=== PATIENT | male | born 1965 | race Caucasian/White ===

== ENCOUNTER 2017-09-14 14:15 | Emergency (ER) | payer OTHER ==
[~2017-09-14] VITALS: Ht 195.6 cm; Wt 152.0 kg
[2017-09-14] MEDS ORDERED: LISI40TA PO (15:00)
--- NOTE | 2017-09-14 15:11 | ED General ---
General Chief Complaint: Laceration Stated Complaint: LEFT INDEX FINGER LACERATION Nursing Triage Note: c/o laceration to left 2nd finger. Pt cut it with a knife while hanging Xmas lights. Nursing Sepsis Screen: No Definite Risk Source of Information: Patient Exam Limitations: No Limitations History of Present Illness Time Seen by Provider: 14:59 Allergies and Home Medications Allergies Coded Allergies: No Known Drug Allergies (Unverified , 09/14/17) Home Medications Lisinopril 40 Mg Tablet, 40 MG PO DAILY, (Reported) Past Spikxpx-Tkemed-Dpkaqw Hx Patient Social History Alcohol Use: Occasionally Uses Recreational Drug Use: No Smoking Status: Never a Smoker Recent Foreign Travel: No Contact w/Someone Who Travel: No Recent Infectious Disease Expo: No Surgeries History of Surgeries: Yes Surgeries: Tonsillectomy Respiratory History of Respiratory Disorde: No Cardiovascular History of Cardiac Disorders: Yes Cardiac Disorders: Hypertension Neurological History of Neurological Disord: No Genitourinary History of Genitourinary Disor: No Gastrointestinal History of Gastrointestinal Di: No Musculoskeletal History of Musculoskeletal Dis: No Endocrine History of Endocrine Disorders: No HEENT History of HEENT Disorders: No Cancer History of Cancer: No Psychosocial History of Psychiatric Problem: No Integumentary History of Skin or Integumenta: No Blood Transfusions History of Blood Disorders: No Physical Exam Vital Signs Vital Sign - Last 12Hours 09/14/17 14:53 Temp 98.5 Pulse 70 Resp 16 B/P (MAP) 135/87 O2 Delivery Room Air Capillary Refill : Less Than 3 Seconds Progress/Results/Core Measures Suspected Sepsis Recent Fever Within 48 Hours: No Infection Criteria Present: None New/Unexplained Altered Menta: No Sepsis Screen: No Definite Risk Sepsis Diagnosis: SIRS Temperature:98.5 Pulse: 70 Respiratory Rate: 16 Blood Pressure 135 /87 Mean: 103 Results/Orders My Orders Orders - JAE CARRERA Tdap (Boostrix) Im (09/14/17 15:13) Lidocaine 2% Injection 20 Ml (Xylocaine (09/14/17 15:13) Bupivacaine 0.5% Injection (Sensorcaine (09/14/17 15:15) Vital Signs/I&O Vital Sign - Last 12Hours 09/14/17 14:53 Temp 98.5 Pulse 70 Resp 16 B/P (MAP) 135/87 O2 Delivery Room Air Capillary Refill : Less Than 3 Seconds Blood Pressure Mean: 103 Departure Impression Impression: Primary Impression: Finger laceration Disposition: 01 HOME, SELF-CARE Condition: Improved Departure-Patient Inst. Decision time for Depature: 15:16 Referrals: FELICIANO LAMBERT DO (PCP/Family) Primary Care Physician Patient Instructions: Laceration Repair With Stitches (DC) Add. Discharge Instructions: All discharge instructions reviewed with patient and/or family. Voiced understanding. Medications as directed. Tylenol extra strength over-the- counter as directed for pain. Ibuprofen 800 mg by mouth every 8 hours as needed for pain. Elevate the hand on pillows, ice pack for 20 minute intervals as needed for pain and swelling. Tomorrow morning you may remove the bandage and shower with antibacterial soap. Apply triple antibiotic ointment twice daily for 3 days and cover with a Band-Aid. Finger splint as instructed. Return to the emergency department in 10 days for suture removal. Return immediately to the emergency department for worsened pain, redness, fever, drainage, or any other concerns. Follow-up with your family practitioner for recheck if needed. JAE CARRERA Sep 14, 2017 15:11
[2017-09-14] MEDS ORDERED: TETANUS,DIPTH,PERTUSS P/F (BOOSTRIX) 0.5 ML VIAL IM STA (15:13)
[2017-09-14] MEDS ORDERED: LIDOCAINE 2% 20 ML (XYLOCAINE) VIAL INJ STA (15:13)
[2017-09-14] MEDS ORDERED: BUPIVACAINE 0.5% 30 ML (SENSORCAINE) VIAL INJ ONE (15:15)
[2017-09-14 15:30] VITALS: BP 135/87
== END 2017-09-14 15:30 | disposition home or self-care (01) ==
LOC: EDUNIT# 14:15 → ER 14:17
DX: S61.211A Laceration without foreign body of left index finger without damage to nail, initial encounter (principal); I10 Essential (primary) hypertension; Z23 Encounter for immunization; Z90.89 Acquired absence of other organs; W26.0XXA Contact with knife, initial encounter
CPT/HCPCS: 90715

== ENCOUNTER 2020-08-27 05:30 | Outpatient (RCR) | payer OTHER ==
[~2020-08-27] VITALS: Ht 195 cm; Wt 152.0 kg
[~2020-08-27 05:30] MED LIST: LISI-552 PO; LISI1TAB46 PO; LISI40TA PO; MELO15TA39 PO
== END 2020-08-27 12:01 | disposition home or self-care (01) ==
LOC: PREOP 05:30
PROVIDERS: ATTEND Surgery
DX: Z01.812 Encounter for preprocedural laboratory examination (principal); Z20.828 Contact with and (suspected) exposure to other viral communicable diseases
CPT/HCPCS: 87635

== ENCOUNTER 2020-08-31 08:19 | Day surgery (SDC) | payer OTHER ==
[~2020-08-31] VITALS: Ht 195 cm; Wt 152.0 kg
[2020-08-31] MEDS ORDERED: LACTATED RINGERS 1,000 ML IV ONE (08:23)
[2020-08-31 08:35] VITALS: BP 112/92
[2020-08-31] MEDS ORDERED: LACTATED RINGERS 1,000 ML IV STA (08:40)
[2020-08-31] MEDS ORDERED: PROPOFOL INJECTION 50 ML IV ONE ×2 (09:42→10:18)
[2020-08-31] MEDS ORDERED: MIDAZOLAM 2 MG/2 ML (VERSED) VIAL ONE (09:42)
[2020-08-31] MEDS ORDERED: proPOfol 200 MG/20 ML (DIPRIVAN) VIAL IV ONE (10:08)
[2020-08-31 10:36] VITALS: BP 124/71
[2020-08-31 10:41] VITALS: BP 135/79
[2020-08-31 10:45] VITALS: BP 135/79
--- NOTE | 2020-08-31 10:46 | Progress Note-Post Operative ---
Post-Operative Progess Note Surgeon (s)/Mill Hand (s) Surgeon SUNDAR GORDON DO Mill Hand: na Pre-Operative Diagnosis screening colonoscopy Post-Operative Diagnosis colon polyps, diverticulosis, sigmoid mass Procedure & Operative Findings Date of Procedure 08/31/20 Procedure Performed/Findings colonoscopy c snare polypectomy x 5 and cold biopsies sigmoid mass, brandan inking 2 areas of colon Anesthesia Type per reserve operator Estimated Blood Loss Estimated blood loss (mL): min Specimens/Packing Specimens Removed colon polyps, sigmoid mass SUNDAR GORDON DO Aug 31, 2020 10:46
--- NOTE | 2020-08-31 10:47 | Discharge Inst-Simple/Standard ---
Discharge Inst-Standard Patient Instructions/Follow Up Plan of Care/Instructions/FU: 2 weeks Vanessa Activity as Tolerated: Yes Discharge Diet: Regular Diet SUNDAR GORDON DO Aug 31, 2020 10:47
[2020-08-31 11:15] VITALS: BP 134/91
[2020-08-31 11:30] VITALS: BP 134/91
--- NOTE | 2020-08-31 12:42 | Anesthesia-General Post-Op ---
MAC Patient Condition Mental Status/LOC: Same as Preop Cardiovascular: Satisfactory Nausea/Vomiting: Absent Respiratory: Satisfactory Pain: Controlled Complications: Absent Post Op Complications Complications None Follow Up Care/Instructions Patient Instructions None needed. Anesthesiology Discharge Order Discharge Order Patient is doing well, no complaints, stable vital signs, no apparent adverse anesthesia problems. No complications reported per nursing. WILVER BRYANT CRNA Aug 31, 2020 12:42
--- NOTE | 2020-08-31 16:25 | OPERATIVE REPORT ---
DATE OF SERVICE: 08/31/2020 PREOPERATIVE DIAGNOSIS: Screening colonoscopy. POSTOPERATIVE DIAGNOSES: Colon polyps, diverticulosis and sigmoid mass. PROCEDURES PERFORMED: Colonoscopy with snare polypectomy x5 and cold biopsies of sigmoid mass with Aleena inking of two areas of colon. SURGEON: Sundar Mendez DO. ANESTHESIA: Per CONCRETE BLOCK MAKER. ESTIMATED BLOOD LOSS: Minimal. COMPLICATIONS: None. INDICATIONS FOR PROCEDURE: The patient is a 54-year-old male needing screening colonoscopy. He understands risks and benefits of procedure and wished to proceed with procedure. Consent was signed in the chart. DESCRIPTION OF PROCEDURE: The patient was taken to the endoscopy suite and placed in a left lateral recumbent position. Timeout was performed. Digital rectal exam was performed. There were no palpable polyps, masses or ulcerations. Scope was inserted in the rectum, advanced all the way to cecum with minimal difficulty. Prep was adequate. Scope was then slowly retracted back. There were no polyps, masses or ulcerations within the cecum. In the ascending colon, there were three polyps, which snare polypectomies were performed and specimen obtained for pathology. Scope was then continued to be slowly retracted. No polyps, masses or ulcerations within the transverse colon. In the descending colon, another polyp was present, which snare polypectomy was performed and obtained. Scope was then continuously retracted back into the sigmoid colon where a larger pedunculated polyp was present, which snare polypectomy was performed. Just distal to this, area was injected with Aleena ink. The specimen was suctioned and slowly withdrawn until completely removed and then the scope was reinserted to the point of the snare polypectomy. Scope was then continued to be slowly retracted back. In the distal portion of the sigmoid, there was a larger sigmoid mass, which multiple cold biopsies were obtained. Just distal to this area, Aleena ink was tattooed just distal to the mass. Scope was then slowly retracted back in the rectum, where it was also retroflexed noting no other pathology. Scope was returned to its normal position, slowly withdrawn until completely removed. The patient tolerated the procedure well without any complications and taken to the recovery room in stable condition. RECOMMENDATIONS: The patient will follow up on pathology. We will discuss further management after biopsy is obtained. Job ID: [id number] DocumentID: [id number] Dictated Date: 08/31/2020 10:51:06 Laser Operator Date: 08/31/2020 16:24:49 Dictated By: SUNDAR MENDEZ DO
== END 2020-08-31 11:30 | disposition home or self-care (01) ==
LOC: ENDO 08:19
PROVIDERS: ATTEND Surgery
DX: Z12.11 Encounter for screening for malignant neoplasm of colon (principal); D12.2 Benign neoplasm of ascending colon; D12.4 Benign neoplasm of descending colon; D12.5 Benign neoplasm of sigmoid colon; K57.30 Diverticulosis of large intestine without perforation or abscess without bleeding; I10 Essential (primary) hypertension; M19.90 Unspecified osteoarthritis, unspecified site; E66.01 Morbid (severe) obesity due to excess calories; Z68.41 Body mass index [BMI] 40.0-44.9, adult; Z79.899 Other long term (current) drug therapy; Z80.1 Family history of malignant neoplasm of trachea, bronchus and lung
CPT/HCPCS: 88305

== ENCOUNTER → 2020-09-21 | Outpatient (CLI) | payer OTHER ==
[~2020-09-21] MED LIST changes: +CATHETER FLUSH 10 ML SYR IV PRN; +HOLD METFORMIN - RECEIVED CONTRAST 20 ML VIAL IV SCH; +IOHEXOL 350 MG/ML 100 ML (OMNIPAQUE 350) VIAL IV ONE; +NS 100 ML (IVPB) BAG IV ONE
[2020-09-21 09:42] LABS: HEMOGLOBIN 14.9 g/dL (13.3-17.7); MEAN PLATELET VOLUME 9.4 fL (9.0-12.2)
[2020-09-21 10:03] LABS: ALANINE AMINOTRANSFERASE 32 U/L (0-55); ALBUMIN 3.9 GM/DL (3.2-4.5); ALKALINE PHOSPHATASE 72 U/L (40-136); BILIRUBIN,TOTAL 0.7 MG/DL (0.1-1.0); BUN/CREATININE RATIO 16; CALCIUM 9.1 MG/DL (8.5-10.1); CARBON DIOXIDE 25 MMOL/L (21-32); CHLORIDE 104 MMOL/L (98-107); CREATININE SERUM 0.96 MG/DL (0.60-1.30); GFR ESTIMATED > 60; GLUCOSE 100 MG/DL (70-105); POTASSIUM 4.2 MMOL/L (3.6-5.0); SODIUM 138 MMOL/L (135-145)
--- NOTE | 2020-09-21 12:07 | Diagnostic Imaging Report ---
INDICATION: Colon carcinoma. TIME OF EXAM: 9:43 AM. COMPARISON: No prior studies are available for comparison. FINDINGS: The heart size is normal. The lungs are clear. No nodules or infiltrates are detected. There is no effusion or pneumothorax. IMPRESSION: No acute cardiopulmonary process is detected. Dictated by: Dictated on workstation # [id number]
--- NOTE | 2020-09-21 13:45 | Diagnostic Imaging Report ---
EXAMINATION: CT Abdomen and Pelvis with intravenous contrast. TECHNIQUE: Multiple contiguous axial images were obtained through the abdomen and pelvis after the uneventful administration of intravenous contrast. All CT scans use one or more of the following dose optimizing techniques: automated exposure control, MA and/or KvP adjustment based on a patient size and exam type, or iterative reconstruction. HISTORY: Colon cancer. COMPARISON: 09/23/2008. FINDINGS: Limited views of the lower thorax are unremarkable. There is a 10 mm right hemiliver lesion, not seen on prior exam. There are four additional low-attenuating liver lesions measuring 5 mm and smaller which are difficult to characterize. There is no biliary ductal dilation. Gallbladder is normal. Pancreas is normal. Spleen is normal. Adrenal glands are normal. The kidneys are normal. There is no hydronephrosis. Urinary bladder is normal. Visualized bowel is normal in caliber without obstruction or inflammation. No free fluid or air. No abdominal or pelvic lymphadenopathy. Aorta is normal in caliber without aneurysm. There are no suspicious osseous lesions. IMPRESSION: 1. Small indeterminate liver lesions may represent cysts versus metastatic disease. Liver protocol MRI is recommended for further evaluation. Dictated by: Dictated on workstation # [id number]
--- NOTE | 2020-09-22 09:28 | Diagnostic Imaging Report ---
INDICATION: Colon carcinoma, initial staging. TECHNIQUE: Serum blood glucose level at the time of injection was 99 mg/dL. The patient was administered 14.2 mCi of F-18 FDG intravenously in the right hand and whole body PET imaging was performed. Non-contrast CT was also performed for attenuation correction and anatomic correlation. COMPARISON: No prior PET studies are available for comparison. FINDINGS: There is symmetric activity throughout the brain. Physiologic activity in the soft tissues of the neck is identified. No mediastinal or hilar hypermetabolism is seen. No pulmonary parenchymal hypermetabolism is identified. There is physiologic activity throughout the GI and tracts of the abdomen and pelvis. There is an intense focus of hypermetabolism in the region of the rectosigmoid junction with an SUV max of 14.3. This may represent the known colonic malignancy. There is a tiny focus in the right pelvis with an SUV max of 4.9. No definite correlate is identified on the CT study but a tiny lymph node cannot be entirely excluded. Lower extremities are unremarkable. IMPRESSION: Hypermetabolic lesion at the rectosigmoid junction, perhaps owing to known primary colonic malignancy. There is a tiny hypermetabolic focus in the right lateral pelvis without definite CT correlate. A tiny lymph node cannot be entirely excluded. Remainder of the study is unremarkable. Dictated by: Dictated on workstation # [id number]
== END ==
LOC: RAD 09:26
PROVIDERS: ATTEND Surgery
DX: C18.7 Malignant neoplasm of sigmoid colon (principal); K76.9 Liver disease, unspecified
CPT/HCPCS: 71046; 74177; 78816; 80053; 82378; 85027; A9552; 36415

== ENCOUNTER 2020-09-28 05:35 | Outpatient (RCR) | payer OTHER ==
[~2020-09-28] VITALS: Ht 195.6 cm; Wt 152.3 kg
[~2020-09-28 05:35] MED LIST changes: -CATHETER FLUSH 10 ML SYR IV PRN; -HOLD METFORMIN - RECEIVED CONTRAST 20 ML VIAL IV SCH; -IOHEXOL 350 MG/ML 100 ML (OMNIPAQUE 350) VIAL IV ONE; -NS 100 ML (IVPB) BAG IV ONE
== END 2020-09-28 13:10 | disposition home or self-care (01) ==
LOC: PREOP 05:35
PROVIDERS: ATTEND Surgery
DX: Z01.812 Encounter for preprocedural laboratory examination (principal); C18.9 Malignant neoplasm of colon, unspecified; Z20.828 Contact with and (suspected) exposure to other viral communicable diseases
CPT/HCPCS: 87635

== ENCOUNTER 2020-09-30 07:48 | Inpatient (IN) | payer OTHER ==
[2020-09-30] VITALS (11 sets, daily range): BP systolic 128–148; BP diastolic 68–90
[~2020-09-30] VITALS: Ht 195.6 cm; Wt 152.3 kg
[2020-09-30] MEDS ORDERED: ceFAZolin 2 GM IV Premixed 50 ML IV ONE (08:15)
[2020-09-30] MEDS ORDERED: LACTATED RINGERS 1,000 ML IV PRN (08:15)
[2020-09-30] MEDS ORDERED: metroNIDAZOLE 500MG/100ML IVPB 100 ML IV ONE (08:15)
[2020-09-30] MEDS ORDERED: CATHETER FLUSH 10 ML SYR IV PRN (08:30)
[2020-09-30] MEDS ORDERED: fentaNYL INJECTION 250 MCG/5 ML AMP ONE (08:34)
[2020-09-30] MEDS ORDERED: MIDAZOLAM 2 MG/2 ML (VERSED) VIAL ONE (08:35)
[2020-09-30] MEDS ORDERED: LIDOCAINE/EPI 1%-1:100,000 (XYLOCAINE) 20ML ONE (08:49)
--- NOTE | 2020-09-30 09:27 | Progress Note-Pre Operative ---
Pre-Operative Progress Note H&P Reviewed The H&P was reviewed, patient examined and no changes noted. Date Seen by Provider: Sep 30, 2020 Time Seen by Provider: : Date H&P Reviewed: Sep 30, 2020 Time H&P Reviewed: : Pre-Operative Diagnosis: colon cancer SUNDAR GORDON DO Sep 30, 2020 09:27
[2020-09-30] MEDS ORDERED: ROCURONIUM 10 MG/ML 5 ML SYRINGE IV ONE (12:08)
[2020-09-30] MEDS ORDERED: NEOSTIGMINE 3 MG/3 ML VIAL ONE (12:08)
[2020-09-30] MEDS ORDERED: GLYCOPYRROLATE 0.2 MG/ML (ROBINUL) 2 ML VIAL ONE (12:08)
[2020-09-30] MEDS ORDERED: ONDANSETRON 4 MG/2 ML (SDV) Z0FRAN ONE (12:08)
[2020-09-30] MEDS ORDERED: SEVOFLURANE (ULTANE) 15 ML INHAL SOLN ONE (12:09)
[2020-09-30] MEDS ORDERED: BUPIVACAINE 0.5% 30 ML (SENSORCAINE) VIAL ONE (12:09)
[2020-09-30] MEDS ORDERED: proPOfol 200 MG/20 ML (DIPRIVAN) VIAL IV ONE (12:11)
--- NOTE | 2020-09-30 12:23 | Progress Note-Post Operative ---
Post-Operative Progess Note Surgeon (s)/Proposal Engineer (s) Surgeon SUNDAR GORDON DO Proposal Engineer: Dr. Harden Pre-Operative Diagnosis colon cancer Post-Operative Diagnosis same Procedure & Operative Findings Date of Procedure 09/30/20 Procedure Performed/Findings lap hand assisted low anterior resection with end to end anastamosis Anesthesia Type gen Estimated Blood Loss Estimated blood loss (mL): minimal Specimens/Packing Specimens Removed rectosigmoid colon SUNDAR GORDON DO Sep 30, 2020 12:23
[2020-09-30] MEDS ORDERED: HYDROcodone/APAP 5 MG/325 MG (LORTAB) TAB PO PRN (12:30)
[2020-09-30] MEDS ORDERED: ONDANSETRON 4 MG/2 ML (SDV) Z0FRAN IVP PRN ×2 (12:30→13:00)
[2020-09-30] MEDS ORDERED: morphine INJ 10 MG/ML 1ML (SYR OR VIAL) ONE (12:53)
[2020-09-30] MEDS ORDERED: MEPERIDINE (DEMEROL) INJ 50 MG/ML IVP ONE (13:00)
[2020-09-30] MEDS ORDERED: morphine INJ 10 MG/ML 1ML (SYR OR VIAL) IVP ONE (13:00)
[2020-09-30] MEDS ORDERED: fentaNYL INJECTION 100 MCG/2 ML AMP IVP ONE (13:00)
[2020-09-30] MEDS: LACTATED RINGERS 1,000 ML IV SCH ×3 (13:08→22:37)
--- NOTE | 2020-09-30 13:42 | NUR ---
REPORT RECEIVED FROM ALEJO SANTOSSENIOR QUALITY ASSURANCE ENGINEER, PATIENT ALERT AND ORIENTED, CALL LIGHT WITHIN REACH, TAMAYO PATENT WITH CLEAR YELLOW URINE, ABD INCISION HAD BLOOD ON DRESSING, WILL CONTINUE TOP MONITOR TAMAYO PATENT WITH CLEAR YELLOW URINE, SCD'S APPLIED, ICE PACK TO ABD, NO C/O PAIN AT THIS TIME
[2020-09-30] MEDS ORDERED: hydrALAZINE (APESOLINE) 20 MG/ML VIAL IV PRN (15:15)
--- NOTE | 2020-09-30 17:00 | NUR ---
WALKED IN [place], JACI WELL, SMALL AMOUNT BLEEDING FROM ABD INCISION, DRESSING REINFORCED.
[2020-09-30] MEDS: metroNIDAZOLE 500MG/100ML IVPB 100 ML IV SCH (17:06)
[2020-09-30] MEDS: ceFAZolin 2 GM IV Premixed 50 ML IV SCH (18:34)
[2020-09-30] MEDS: morphine INJ 4 MG/ML 1 ML (VIAL/SYRINGE) IVP PRN ×2 (18:38→22:37)
[2020-10-01] VITALS (8 sets, daily range): BP systolic 125–147; BP diastolic 67–83
[2020-10-01] MEDS: ceFAZolin 2 GM IV Premixed 50 ML IV SCH (01:45)
[2020-10-01] MEDS: metroNIDAZOLE 500MG/100ML IVPB 100 ML IV SCH (02:23)
[2020-10-01 05:51] LABS: HEMOGLOBIN 13.7 g/dL (13.3-17.7); MEAN PLATELET VOLUME 9.8 fL (9.0-12.2); WHITE BLOOD COUNT 11.1 10^3/uL (4.3-11.0)
[2020-10-01 06:02] LABS: CHLORIDE 103 MMOL/L (98-107); POTASSIUM 4.2 MMOL/L (3.6-5.0); SODIUM 135 MMOL/L (135-145)
[2020-10-01 06:03] LABS: CALCIUM 8.3 MG/DL (8.5-10.1)
[2020-10-01] MEDS: POTASSIUM CL 10MEQ/50ML IVPB 50 ML IV SCH ×2 (06:03→23:04)
[2020-10-01] MEDS: KCL 20 MEQ TAB (K-DUR) PO SCH (06:03)
[2020-10-01 06:04] LABS: GLUCOSE 119 MG/DL (70-105)
[2020-10-01 06:05] LABS: CARBON DIOXIDE 24 MMOL/L (21-32)
[2020-10-01 06:07] LABS: CREATININE SERUM 0.99 MG/DL (0.60-1.30); GFR ESTIMATED > 60; PHOSPHORUS 3.8 MG/DL (2.3-4.7)
[2020-10-01 06:08] LABS: BUN/CREATININE RATIO 14
[2020-10-01 06:10] LABS: MAGNESIUM 2.1 MG/DL (1.6-2.4)
[2020-10-01] MEDS: MAGNESIUM 1 GM/100 ML IVPB 100 ML IV SCH (06:21)
--- NOTE | 2020-10-01 06:45 | Anesthesia-General Post-Op ---
General Patient Condition Mental Status/LOC: Same as Preop Cardiovascular: Satisfactory Nausea/Vomiting: Absent Respiratory: Satisfactory Pain: Controlled Complications: Absent Post Op Complications Complications None Follow Up Care/Instructions Patient Instructions None needed. Anesthesia/Patient Condition Patient Condition Patient is doing well, no complaints, stable vital signs, no apparent adverse anesthesia problems. No complications reported per nursing. D/C home per [facility] Criteria: MARIELLE Newell CRNA Oct 01, 2020 06:45
--- NOTE | 2020-10-01 07:13 | Progress Note - Surgery ---
SELVIN PHIPPS MED STUDENT 10/01/20 0713: Subjective Date Seen by a Provider: Oct 01, 2020 Time Seen by a Provider: 06:45 Subjective/Events-last exam Pt seen and examined. Pt is laying in bed, NAD. POD#1 s/p rectosigmoid bowel resection for colon cancer. He states that pain is well controlled; minimal when laying down but worsens with movement. Denies N/V, no flatus since surgery, last BM on Sunday. He has complaints of the Arce tugging and causing him discomfort. Ambulated around the [place] x1 yesterday without issue. Tolerating ice chips well, states that he had 6-8cups worth of ice chips since yesterday. Pt had no other questions or concerns. Review of Systems General: No Chills HEENT: No Head Aches Pulmonary: No Dyspnea, No Cough Cardiovascular: No: Chest Pain, Palpitations, Lt Headedness Gastrointestinal: Abdominal Pain (Diffuse/dull abd pain, worse with palpation/movement); No: Nausea, Vomiting Genitourinary: Dysuria (discomfort/feeling of fullness r/t arce catheter) Objective Exam Vital Signs Date Time Temp Pulse Resp B/P (MAP) Pulse Ox O2 Delivery O2 Flow Rate FiO2 10/01/20 04:00 37.2 80 18 125/72 (89) 96 Room Air 10/01/20 00:00 37.1 89 18 134/67 (89) 96 Room Air 09/30/20 21:00 Room Air 09/30/20 19:49 37.2 87 20 131/68 (89) 94 Room Air 09/30/20 16:13 36.9 89 18 134/72 (92) 96 Room Air 09/30/20 15:32 97 Room Air 09/30/20 13:50 36.2 68 20 148/85 (106) 97 Room Air 09/30/20 13:40 Room Air 09/30/20 13:40 36.8 18 136/81 (99) 97 Room Air 09/30/20 13:35 Room Air 09/30/20 13:30 18 136/81 (99) 96 Room Air 09/30/20 13:25 OxyMask 3 09/30/20 13:22 OxyMask 3 09/30/20 13:20 18 135/84 (101) 100 OxyMask 3 09/30/20 13:10 OxyMask 3 09/30/20 13:10 18 128/83 (98) 100 OxyMask 3 09/30/20 13:00 18 138/81 (100) 100 OxyMask 6 09/30/20 12:55 OxyMask 6 09/30/20 12:50 18 136/90 (105) 100 OxyMask 6 09/30/20 12:43 37.1 11 131/72 (91) 99 OxyMask 6 09/30/20 12:43 OxyMask 6 09/30/20 08:15 35.6 94 20 146/87 (106) 96 Room Air 09/30/20 08:15 96 Room Air I & O 10/01/20 07:00 Intake Total 450 ml Output Total 1870 ml Balance -1420 ml Capillary Refill : NONENONE General Appearance: No Apparent Distress, WD/WN, Obese HEENT: PERRL/EOMI Neck: Full Range of Motion, Normal Inspection Respiratory: Chest Non Tender, Lungs Clear, Normal Breath Sounds, No Accessory Muscle Use, No Respiratory Distress Cardiovascular: Regular Rate, Rhythm, No Edema, No Gallop, No JVD, No Murmur Gastrointestinal: soft, abnormal bowel sounds (hypoactive x4); No guarding, No rebound; tenderness Extremity: Normal Inspection, Normal Range of Motion Neurologic/Psychiatric: Alert, Oriented x3, No Motor/Sensory Deficits, Normal Mood/Affect Skin: Normal Color, Warm/Dry, Other Other comments Incision sites x4 to abd: RUQ, LUQ, RLQ, mid-abd. Mid-abd incision with Telfa d ressing soaked through with sanguinous drainage since yesterday, with some drainage on the overlying dressing. Lap sites with mild amounts of drainage. Results Lab Laboratory Tests 10/01/20 05:40: White Blood Count 11.1H, Red Blood Count 4.52, Hemoglobin 13.7, Hematocrit 41, Mean Corpuscular Volume 91, Mean Corpuscular Hemoglobin 30, Mean Corpuscular Hemoglobin Concent 33, Red Cell Distribution Width 13.4, Platelet Count 234, Mean Platelet Volume 9.8, Sodium Level 135, Potassium Level 4.2, Chloride Level 103, Carbon Dioxide Level 24, Anion Gap 8, Blood Urea Nitrogen 14, Creatinine 0.99, Estimat Glomerular Filtration Rate > 60, BUN/Creatinine Ratio 14, Glucose Level 119H, Calcium Level 8.3L, Phosphorus Level 3.8, Magnesium Level 2.1 Assessment/Plan Assessment/Plan Assessment/Plan s/p rectosigmoid bowel resection POD#1 Leukocytosis - WBC 11.1 Obese Pt is tolerating ice chips well, advance to clear liquid diet. Pain well controlled with no complaints of N/V. No flatus since surgery. Continue to encourage ambulation and IS use. Continue to monitor labs/incision sites. Clinical Quality Measures DVT/VTE Risk/Contraindication: Risk Factor Score Per Nursin RFS Level Per Nursing on Admit: 3=High SUNDAR GORDON DO 10/01/201932: Subjective Subjective/Events-last exam Patient states he is doing well. He is ambulating. His pain is controlled. No flatus or bowel movement. He just started clears this morning and feeling okay with them no nausea or vomiting. Denies any fever sweats chills shortness of breath or chest pain. Objective Exam General Appearance: No Apparent Distress, WD/WN, Obese HEENT: PERRL/EOMI, Normal ENT Inspection Neck: Full Range of Motion, Normal Inspection Respiratory: Chest Non Tender, No Accessory Muscle Use, No Respiratory Distress Cardiovascular: Regular Rate, Rhythm, No Edema Gastrointestinal: soft, tenderness (Incisional, no signs of infection) Extremity: Normal Inspection, Normal Range of Motion Neurologic/Psychiatric: Alert, Oriented x3, No Motor/Sensory Deficits, Normal Mood/Affect Skin: Normal Color, Warm/Dry Lymphatic: No Adenopathy Assessment/Plan Assessment/Plan Assessment/Plan Status post laparoscopic hand-assisted low anterior resection Obesity Hypertension Pain control IV hydration Ambulate Incentive spirometer Start Lovenox tomorrow [place] Arce Await bowel function Supervisory-Addendum Brief Verification & Attestation Participated in pt care: history, MDM, physical Personally performed: exam, history, MDM, supervision of care Care discussed with: Medical Student Procedures: n/a Results interpretation: Verified all documentation Verification and Attestation of Medical Student E/M Service A medical student performed and documented this service in my presence. I reviewed and verified all information documented by the medical student and made modifications to such information, when appropriate. I personally performed the physical exam and medical decision making. Sundar Gordon, Oct 01, 2020,19:33 SELVIN PHIPPS MED STUDENT Oct 01, 2020 07:13 SUNDAR GORDON DO Oct 01, 2020 19:33
[2020-10-01] MEDS: LACTATED RINGERS 1,000 ML IV SCH ×3 (08:40→23:04)
--- NOTE | 2020-10-01 09:18 | Physical Therapy Progress Note ---
Therapy Progress Note Patient is up with and without nursing staff ambulating in hallway and in room without difficulty. No PT indicated. 1 visit (812) DANIELLE CLARKE PT Oct 01, 2020 09:18
--- NOTE | 2020-10-01 15:00 | NUR ---
pt hoping to be discharged home today. His will be hi s primary caregiver. 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 He [facility] app[facility]. No continued care needs at this time.
--- NOTE | 2020-10-01 16:00 | NUR ---
PT. STATES HE IS VOIDING WELL.
--- NOTE | 2020-10-01 16:14 | Consultation - Hospitalist ---
HPI History of Present Illness: HPI/Chief Complaint Franki Norris is a 54-year-old male who was admitted for rectosigmoid resection due to colon cancer. He underwent the surgery yesterday. He reports that he is feeling well today. He is not passing gas or bowel movements. He did have clear liquids this morning and tolerated it well. He has been up and moving around. He denies any fevers or chills. He denies any chest pain. He denies any shortness of breath or cough. He denies any abdominal pain. He has a history of hypertension. Source: patient Exam Limitations: no limitations Date Seen 10/01/20 Attending Physician Marcus Mendez DO PCP Sancho Dahl DO Referring Physician Date of Admission Sep 30, 2020 at 07:48 Home Medications & Allergies Home Medications Reviewed patient Home Medication Reconciliation performed by pharmacy medication reconciliations emergency veterinary technician and/or nursing. Patients Allergies have been reviewed. Allergies Allergies Coded Allergies No Known Drug Allergies (Bczkbgodsq82/4/20) Past Yxmxsdw-Edhjek-Cwqulv Hx Past Med/Social Hx: Reviewed Nursing Past Med/Soc Hx Patient Social History Alcohol Use: Occasionally Uses Recreational Drug Use: No Smoking Status: Never a Smoker 2nd Hand Smoke Exposure: No Physical Abuse Screen: No Sexual Abuse: No Recent Foreign Travel: No Contact w/other who traveled: No Recent Hopitalizations: No Recent Infectious Disease Expo: No Immunizations Up To Date Tetanus Booster (TDap): Unknown Date of Influenza Vaccine: Aug 31, 2020 Seasonal Allergies Seasonal Allergies: No Past Medical History Surgeries: Tonsillectomy Cardiac: Hypertension Sexually Transmitted Disease: No HIV/AIDS: No Loss of Vision: Denies Hearing Impairment: Denies History of Blood Disorders: No Adverse Reaction to Blood Van: No (N/A) Family History Cataracts 19 MOTHER Completed stroke 19 FATHER Deafness or hearing loss 19 MOTHER Hypertension 19 FATHER 19 MOTHER No Pertinent Family Hx Review of Systems Constitutional: no symptoms reported EENTM: no symptoms reported Respiratory: no symptoms reported Cardiovascular: no symptoms reported Gastrointestinal: no symptoms reported Genitourinary: no symptoms reported Musculoskeletal: no symptoms reported Skin: no symptoms reported Psychiatric/Neurological: No Symptoms Reported Physical Exam Physical Exam Vital Signs Vital Signs - First Documented 09/30/20 08:15 Temp 35.6 Pulse 94 Resp 20 B/P (MAP) 146/87 (106) Pulse Ox 96 O2 Delivery Room Air Capillary Refill : NONENONE Height, Weight, BMI Height: 6'5.00" Weight: 335lbs. oz. 151.423197va; 39.80 BMI Method:Stated General Appearance: No Apparent Distress, WD/WN, Obese HEENT: PERRL/EOMI, Pharynx Normal Neck: Normal Inspection, Supple Respiratory: Lungs Clear, Normal Breath Sounds, No Respiratory Distress Cardiovascular: Regular Rate, Rhythm, No Edema, No Murmur Gastrointestinal: Normal Bowel Sounds, Non Tender, Soft Extremity: Normal Inspection, Non Tender, No Pedal Edema Neurologic/Psychiatric: Alert, Oriented x3, No Motor/Sensory Deficits, Normal Mood/Affect Skin: Normal Color, Warm/Dry, Other Results Results/Procedures Labs Laboratory Tests 10/01/20 05:40 Patient resulted labs reviewed. Imaging: Reviewed Imaging Report Assessment/Plan Assessment and Plan Assess & Plan/Chief Complaint Colon cancer s/p rectosigmoidectomy s/p resection 09/30 Pain regimen Incentive spirometry IV fluids Clear liquid diet Ambulation HTN Continue Lisinopril Hydralazine as needed Obesity Clinically significant, no acute management needs DVT Prophylaxis: begin Lovenox when ok with surgery The hospitalist service will sign off at this time. Do not hesitate to call with any questions or concerns. Diagnosis/Problems Diagnosis/Problems (1) Colon cancer Status: Acute (2) S/P partial colectomy Status: Acute (3) HTN (hypertension) Status: Chronic (4) Obesity Status: Chronic Clinical Quality Measures DVT/VTE Risk/Contraindication: Risk Factor Score Per Nursin RFS Level Per Nursing on Admit: 3=High TYREE TEAGUE MD Oct 01, 2020 16:14
--- NOTE | 2020-10-02 02:26 | OPERATIVE REPORT ---
DATE OF SERVICE: 09/30/2020 PREOPERATIVE DIAGNOSIS: Colon cancer. POSTOPERATIVE DIAGNOSIS: Colon cancer. PROCEDURE: Laparoscopic hand-assisted low anterior resection with end-to-end anastomosis. SURGEON: Sundar Mendez DO CERTIFIED FLIGHT INSTRUCTOR: Dr. Harden, assisted in retraction, dissection and closure. ANESTHESIA: General. ESTIMATED BLOOD LOSS: Minimal. SPECIMENS: Rectosigmoid colon. INDICATIONS: The patient is a 54-year-old male found to have a mass in the sigmoid colon. He was discussed risks and benefits of procedure and wished to proceed with procedure. Consent was signed in the chart. DESCRIPTION OF PROCEDURE: The patient was taken to the operating suite, was prepped and draped in lithotomy position. Timeout was performed. Midline incision was made for hand assist Gelport placement. The Gelport was then inserted and the abdomen was then insufflated. Under direct visualization of the laparoscope, a 12 mm trocar was placed in the left lower quadrant and in the right lower quadrant. The patient's abdomen was inspected noting the mass at the rectosigmoid junction. The right colon was then mobilized along the white line of Toldt using cautery. The rectum was then continued to be dissected on the lateral aspects mobilizing the rectum, the massively palpated and further dissection was taken distally until the colon was able to be dissected around distal to the mass. Once distal and the colon was dissected around, an Endo-JAY JAY stapler was then fired across transecting the rectum. A 5 mm trocar had to be placed in left upper quadrant to assist with further dissection of the left gutter for mobilization of the length. Once this occurred, the LigaSure was then used to start dissecting the mesentery of the rectum proximally. This was then brought out through the hand port and further dissection of the mesentery with a LigaSure was used. The proximal margin of the colon was then dissected around and an Endo-JAY JAY reload was then fired across and the LigaSure was then used to divide the rest of the mesentery obtaining a specimen. A stitch was placed on the distal portion of the specimen. A pursestring suture was then fired across the distal portion of the sigmoid colon and a 29 EEA stapler anvil was inserted after the staple line was cut out. Using the pursestring, the anvil was tied into place. The colon fat was dissected off of the distal portion for the anastomosis. At this time, Dr. Harden went down below and dilated the rectum and the end-to-end anastomosis was created. He had two good anastomotic rings. The pelvis was filled with saline and air leak test was performed demonstrating no leak. The irrigation was suctioned. The abdomen was reinspected. No other pathology noted. The midline incision for the hand port was then closed using 1-0 looped PDS in a running fashion. The abdomen was then reinsufflated. The abdomen was inspected. No other abnormalities noted. The abdomen was then desufflated. The trocars were removed. The skin was then closed using kristofer. The area was then washed and dried and sterile bandages were applied. The patient tolerated procedure well without any complications. He was taken to recovery room in stable condition. Job ID: [id number] DocumentID: [id number] Dictated Date: 10/01/2020 21:38:57 Room Clerk Date: 10/02/2020 02:25:30 Dictated By: SUNDAR MENDEZ DO
[2020-10-02 04:09] VITALS: BP 132/69
[2020-10-02] MEDS: MAGNESIUM 1 GM/100 ML IVPB 100 ML IV SCH (05:58)
[2020-10-02 06:00] LABS: HEMOGLOBIN 13.5 g/dL (13.3-17.7); WHITE BLOOD COUNT 8.3 10^3/uL (4.3-11.0)
[2020-10-02 06:19] LABS: CHLORIDE 104 MMOL/L (98-107); POTASSIUM 4.2 MMOL/L (3.6-5.0); SODIUM 137 MMOL/L (135-145)
[2020-10-02 06:20] LABS: CALCIUM 8.2 MG/DL (8.5-10.1); GLUCOSE 95 MG/DL (70-105)
[2020-10-02 06:22] LABS: CARBON DIOXIDE 23 MMOL/L (21-32)
[2020-10-02 06:24] LABS: CREATININE SERUM 0.88 MG/DL (0.60-1.30); GFR ESTIMATED > 60; PHOSPHORUS 2.8 MG/DL (2.3-4.7)
[2020-10-02 06:25] LABS: BUN/CREATININE RATIO 17
[2020-10-02] MEDS: KCL 20 MEQ TAB (K-DUR) PO SCH (06:27)
[2020-10-02 08:05] VITALS: BP 133/74
[2020-10-02] MEDS: lisINopril 40 MG (PRINIVIL) TABLET PO SCH (09:35)
[2020-10-02] MEDS: ENOXAPARIN 40 MG/0.4 ML (LOVENOX) SYR SC SCH (09:35)
--- NOTE | 2020-10-02 11:50 | Progress Note ---
Subjective Date Seen by a Provider: Oct 02, 2020 Time Seen by a Provider: 10:40 Subjective/Events-last exam Patient seen with Dr. Cohen. Patient reports doing well. Tolerating diet and ambulating. Reports having flatus since last night. Denies any abdominal pain, nausea, vomiting, fever, or chills. Patient reports that he feels like he can go home. Objective Exam Vital Signs Date Time Temp Pulse Resp B/P (MAP) Pulse Ox O2 Delivery O2 Flow Rate FiO2 10/02/20 04:09 37.0 85 20 132/69 (90) 95 Room Air 10/01/20 23:25 36.7 89 18 130/71 (90) 94 Room Air 10/01/20 20:36 37.6 80 18 147/83 (104) 95 Room Air 10/01/20 20:25 Room Air 10/01/20 17:12 37.5 70 20 144/82 (102) 97 Room Air 10/01/20 17:00 37.5 70 20 144/82 (102) 97 Room Air 10/01/20 12:00 37.1 97 20 130/82 (98) 93 Room Air I & O 10/02/20 07:00 Intake Total 1935 ml Output Total 850 ml Balance 1085 ml Capillary Refill : NONENONE General Appearance: No Apparent Distress, WD/WN Neck: Full Range of Motion, Normal Inspection Respiratory: Normal Breath Sounds, No Accessory Muscle Use, No Respiratory Distress Cardiovascular: Regular Rate, Rhythm, No Edema Gastrointestinal: normal bowel sounds, non tender, soft, other (abdominal incisions C/D/I) Extremity: Normal Inspection, Normal Range of Motion Neurologic/Psychiatric: Alert, Oriented x3 Skin: Normal Color, Warm/Dry Results Lab Laboratory Tests 10/02/20 05:41: White Blood Count 8.3, Red Blood Count 4.47, Hemoglobin 13.5, Hematocrit 42, Mean Corpuscular Volume 93, Mean Corpuscular Hemoglobin 30, Mean Corpuscular Hemoglobin Concent 32, Red Cell Distribution Width 13.4, Platelet Count 210, Mean Platelet Volume 10.0, Sodium Level 137, Potassium Level 4.2, Chloride Level 104, Carbon Dioxide Level 23, Anion Gap 10, Blood Urea Nitrogen 15, Creatinine 0.88, Estimat Glomerular Filtration Rate > 60, BUN/Creatinine Ratio 17, Glucose Level 95, Calcium Level 8.2L, Phosphorus Level 2.8, Magnesium Level 2.0 Microbiology 09/30/20 MRSA Screen - Final, Complete MRSA not isolated Assessment/Plan Assessment/Plan Assess & Plan/Chief Complaint A 54 year old male with colon cancer who is Status post laparoscopic hand- assisted low anterior resection, Obesity, Hypertension VSS WBC 8.3 Will advance to DYS3 diet Pain control IV hydration Ambulate Incentive spirometer Home Soon Clinical Quality Measures DVT/VTE Risk/Contraindication: Risk Factor Score Per Nursin RFS Level Per Nursing on Admit: 3=High COLT PAGAN VENDING ROUTE SERVICER Oct 02, 2020 11:50
--- NOTE | 2020-10-02 11:53 | Discharge Inst-Surgical ---
D/C Lap Instructions-KIDO Reconcile Patient Problems Problems Reviewed?: Yes New, Converted, or Re-Newed RX: RX on Chart Follow Up Appt in [address] Mendez Activity as tolerated No driving for 24 hours No driving while on pain medications No heavy lifting or exertion Incentive Spirometry use every 2 hours while awake Regular Diet Symptoms to Report: Fever over 101 degree F, Nausea/Vomiting Infection Signs and Symptoms to report: Increased redness, Foul odor of wound, Increased drainage Bathing instructions: May shower Operative Area Clean/Dry; Keep incision clean/dry If any problems/questions: Contact your physician or go to Emergency Room COLT PAGAN APRN Oct 02, 2020 11:53
[2020-10-02 16:19] VITALS: BP 159/73
[2020-10-03] VITALS: BP 114/57
[2020-10-03] MEDS: POTASSIUM CL 10MEQ/50ML IVPB 50 ML IV SCH (06:30)
[2020-10-03] MEDS: KCL 20 MEQ TAB (K-DUR) PO SCH (06:30)
[2020-10-03 07:30] VITALS: BP 135/79
[2020-10-03 07:43] LABS: HEMOGLOBIN 13.5 g/dL (13.3-17.7); WHITE BLOOD COUNT 7.6 10^3/uL (4.3-11.0)
[2020-10-03 07:55] LABS: CHLORIDE 105 MMOL/L (98-107); POTASSIUM 4.2 MMOL/L (3.6-5.0); SODIUM 139 MMOL/L (135-145)
[2020-10-03 07:56] LABS: CALCIUM 8.4 MG/DL (8.5-10.1); GLUCOSE 84 MG/DL (70-105)
[2020-10-03 07:58] LABS: CARBON DIOXIDE 22 MMOL/L (21-32)
[2020-10-03 08:00] LABS: CREATININE SERUM 0.82 MG/DL (0.60-1.30); GFR ESTIMATED > 60; PHOSPHORUS 3.3 MG/DL (2.3-4.7)
--- NOTE | 2020-10-03 08:00 | NUR ---
DENIES PAIN. STATES "A LITTLE INCISIONAL SORENESS". TOLERATING SOFT DIET WELL. FEELS READY FOR DISCHARGE.
[2020-10-03 08:01] LABS: BUN/CREATININE RATIO 17
[2020-10-03 08:03] LABS: MAGNESIUM 2.1 MG/DL (1.6-2.4)
[2020-10-03] MEDS: lisINopril 40 MG (PRINIVIL) TABLET PO SCH (09:53)
[2020-10-03] MEDS: ENOXAPARIN 40 MG/0.4 ML (LOVENOX) SYR SC SCH (09:55)
--- NOTE | 2020-10-03 10:18 | Progress Note ---
Subjective Date Seen by a Provider: Oct 03, 2020 Time Seen by a Provider: 09:30 Subjective/Events-last exam Patient seen with Dr. Cohen. Patient reports doing well with minimal discomfort/pain. He reports tolerating diet and ambulating. Denies any nausea or vomiting. He reports that he is ready to go home. Objective Exam Vital Signs Date Time Temp Pulse Resp B/P (MAP) Pulse Ox O2 Delivery O2 Flow Rate FiO2 10/03/20 07:30 36.8 79 20 135/79 (97) 98 Room Air 10/03/20 00:00 36.8 66 18 114/57 (76) 96 Room Air 10/02/20 19:41 Room Air 10/02/20 16:19 89 20 159/73 (101) 95 Room Air I & O0 10/03/20 07:00 Intake Total 1450 ml Balance 1450 ml Capillary Refill : Less Than 3 SecondsNONE General Appearance: No Apparent Distress, WD/WN Neck: Full Range of Motion, Normal Inspection Respiratory: Normal Breath Sounds, No Accessory Muscle Use, No Respiratory Distress Cardiovascular: Regular Rate, Rhythm, No Edema Gastrointestinal: normal bowel sounds, non tender, soft, other (Abdominal incisions C/D/I) Extremity: Normal Inspection, Normal Range of Motion Neurologic/Psychiatric: Alert, Oriented x3 Skin: Normal Color, Warm/Dry Results Lab Laboratory Tests 10/03/20 07:21: White Blood Count 7.6, Red Blood Count 4.44, Hemoglobin 13.5, Hematocrit 42, Mean Corpuscular Volume 94, Mean Corpuscular Hemoglobin 30, Mean Corpuscular Hemoglobin Concent 33, Red Cell Distribution Width 13.4, Platelet Count 204, Mean Platelet Volume 10.0, Sodium Level 139, Potassium Level 4.2, Chloride Level 105, Carbon Dioxide Level 22, Anion Gap 12, Blood Urea Nitrogen 14, Creatinine 0.82, Estimat Glomerular Filtration Rate > 60, BUN/Creatinine Ratio 17, Glucose Level 84, Calcium Level 8.4L, Phosphorus Level 3.3, Magnesium Level 2.1 Microbiology 09/30/20 MRSA Screen - Final, Complete MRSA not isolated Assessment/Plan Assessment/Plan Assess & Plan/Chief Complaint A 54 year old male with colon cancer who is Status post laparoscopic hand- assisted low anterior resection, Obesity, Hypertension VSS WBC 7.3 Tolerating DYS3 diet Pain control IV hydration Ambulate Incentive spirometer Ok to DC home. Follow up with Dr. Mendez in 2 weeks Clinical Quality Measures DVT/VTE Risk/Contraindication: Risk Factor Score Per Nursin RFS Level Per Nursing on Admit: 3=High COLT PAGAN RELIEF CAPTAIN Oct 03, 2020 10:18
--- NOTE | 2020-10-03 10:45 | NUR ---
DR. GARY HERE TO SEE PATIENT.
[2020-10-03 13:04] VITALS: BP 135/79
== END 2020-10-03 12:00 | disposition home or self-care (01) | DRG 331 ==
LOC: 4TH 07:48 → SURG 07:49 → 4TH 13:30
PROVIDERS: ADMIT Surgery; ATTEND Surgery
PROC: 0DBP0ZZ Excision of Rectum, Open Approach (ICD-10-PCS; principal; 2020-09-30 09:55)
PROC: 0DBN0ZZ Excision of Sigmoid Colon, Open Approach (ICD-10-PCS; 2020-09-30 09:55)
DX: C19 Malignant neoplasm of rectosigmoid junction (principal); E66.9 Obesity, unspecified; Z68.39 Body mass index [BMI] 39.0-39.9, adult; I10 Essential (primary) hypertension
CPT/HCPCS: 36415; 80048; 83735; 84100; 85027; 86850; 86900; 86901; 87081

== ENCOUNTER 2020-10-21 09:28 | Outpatient (RCR) | payer OTHER ==
[~2020-10-21] VITALS: Ht 195.6 cm; Wt 149.2 kg
[2020-10-25] MEDS ORDERED: D5W 500 ML IV (CANCER CTR) 500 ML IV SCH (14:30)
[2020-10-25] MEDS ORDERED: OXALIPLATIN 170 MG in D5W 250 ML IVPB (CANCER CTR) 250 ML IV SCH (14:45)
[2020-10-25] MEDS ORDERED: LEUCOVORIN CALCIUM 500 MG, LEUCOVORIN CALCIUM 200 MG, LEUCOVORIN CALCIUM 100 MG in D5W ... IV SCH (14:45)
== END 2020-10-29 14:30 | disposition home or self-care (01) ==
LOC: ONC 09:28
PROVIDERS: ATTEND Internal Medicine Hematology & Oncology
DX: C18.7 Malignant neoplasm of sigmoid colon (principal)
CPT/HCPCS: 99213; 99214

== ENCOUNTER 2020-10-26 05:36 | Outpatient (RCR) | payer OTHER ==
[~2020-10-26] VITALS: Ht 195.6 cm; Wt 150.9 kg
== END 2020-10-26 09:50 | disposition home or self-care (01) ==
LOC: PREOP 05:36
PROVIDERS: ATTEND Surgery
DX: Z01.812 Encounter for preprocedural laboratory examination (principal); C18.9 Malignant neoplasm of colon, unspecified; Z20.822 Contact with and (suspected) exposure to COVID-19
CPT/HCPCS: 87635

== ENCOUNTER 2020-10-28 07:55 | Day surgery (SDC) | payer OTHER ==
[~2020-10-28] VITALS: Ht 195.6 cm; Wt 150.9 kg
[2020-10-28] VITALS (7 sets, daily range): BP systolic 110–133; BP diastolic 64–91
[2020-10-28] MEDS ORDERED: HEParin (CENTRAL IV FLUSH) 500 UNIT/5 ML SYR ONE (08:54)
[2020-10-28] MEDS ORDERED: 0.9% SODIUM CHLORIDE PF INJ 20 ML VIAL ONE (08:55)
[2020-10-28] MEDS ORDERED: LIDOCAINE 1% INJ 20 ML 20 ML VIAL ONE (08:55)
[2020-10-28] MEDS ORDERED: LIDOCAINE/EPI 1%-1:200,000 (XYLOCAINE) 30 ML VIAL ONE (08:57)
[2020-10-28] MEDS ORDERED: ceFAZolin 2 GM IV Premixed 50 ML IV ONE (09:00)
[2020-10-28] MEDS: LACTATED RINGERS 1,000 ML IV PRN ×2 (09:12→10:39)
[2020-10-28] MEDS ORDERED: proPOfol 200 MG/20 ML (DIPRIVAN) VIAL IV ONE ×2 (09:26→10:39)
[2020-10-28] MEDS ORDERED: KETAMINE/NaCl 50 MG/5 ML SYRINGE (ED ONLY) ONE (09:26)
[2020-10-28] MEDS ORDERED: MIDAZOLAM 2 MG/2 ML (VERSED) VIAL ONE ×3 (09:27→10:11)
[2020-10-28] MEDS ORDERED: LIDOCAINE PF 2% 5 ML (XYLOCAINE) VIAL ONE (10:39)
--- NOTE | 2020-10-28 10:54 | Discharge Inst-Simple/Standard ---
Discharge Inst-Standard Patient Instructions/Follow Up Plan of Care/Instructions/FU: 2 weeks Vanessa Activity as Tolerated: No Discharge Diet: Regular Diet Other Inst to Patient Follow up Appt: Make appointment for 2 week. Instructions: No lifting greater than 10 pounds. No strenuous activity. May shower in 24 hours, no tub bath or soaking. Use incentive spirometer at home as directed. No Smoking Skin/Wound Care: You have special glue over your incision that will fall off on it's own. Place ice pack on 15min and off 30 min and then repeat to decrease swelling and discomfort. Symptoms to Report: Appetite Changes, Extremity Discoloration, Numbness/Tingling, Swelling Increased, Bleeding Excessive, Eyesight Changes, Pain Increased, Urine Color Change, Constipation(Persistent), Fever over 101 degree F, Pain/Pressure in chest, Urinating Difficulty, Cough Up/Vomit Blood, Heart Beat Irreg/Pounding, Pain/Pressure in jaw, Vaginal Bleeding Increase, Cramps in feet or legs, Lightheadedness, Pain/Pressure in shoulder, Diarrhea(Persistent), Memory Changes Suddenly, Questions/Concerns, Weight gain consecutive days, Dizziness/Fainting, Nausea/Vomiting, Shortness of Breath, Weight gain over 2 pounds If questions or concerns contact your physician Or seek help at emergency department. SUNDAR GORDON DO Oct 28, 2020 10:54
[2020-10-28] MEDS ORDERED: ONDANSETRON 4 MG/2 ML (SDV) Z0FRAN IVP PRN (11:00)
[2020-10-28] MEDS ORDERED: morphine INJ 10 MG/ML 1ML (SYR OR VIAL) IVP ONE (11:00)
--- NOTE | 2020-10-28 11:00 | Diagnostic Imaging Report ---
Indication: Port-A-Cath placement. History of colon cancer. COMPARISON: None Total fluoroscopy time: 55 seconds Total number fluoroscopic images saved: 3 FINDINGS: Multiple intraoperative image intensifier views of the right chest were obtained during Port-A-Cath placement. Images provided show a right internal jugular venous approach. Central tip is obscured. Evaluation for pneumothorax is suboptimal given fluoroscopic modality. Please note, interpreting radiologist was not present during the procedure. IMPRESSION:. Fluoroscopic guidance provided during Port-A-Cath placement. Dictated by: Dictated on workstation # [id number]
--- NOTE | 2020-10-28 11:21 | Diagnostic Imaging Report ---
INDICATION: Status post Port-A-Cath placement COMPARISON: 09/21/2020 FINDINGS: Single frontal view of the chest demonstrates normal heart size and pulmonary vascularity. New right internal jugular Port-A-Cath is seen with tip in the SVC. The lungs are well aerated and clear. No large pleural effusion or pneumothorax is seen. The visualized osseous structures show no acute abnormalities. IMPRESSION: 1. New right internal jugular Port-A-Cath with tip in the SVC. No pneumothorax. Dictated by: Dictated on workstation # [id number]
--- NOTE | 2020-10-29 20:34 | Progress Note-Post Operative ---
Post-Operative Progess Note Surgeon (s)/Armament Aircraft Mechanic (s) Surgeon SUNDAR GORDON DO Armament Aircraft Mechanic: na Pre-Operative Diagnosis colon cancer Post-Operative Diagnosis same Procedure & Operative Findings Date of Procedure 10/28/20 Procedure Performed/Findings PROCEDURE: Right internal jugular port placement using ultrasound guidance. COMPLICATIONS: None. INDICATIONS: The patient is a 54 year old male with colon cancer. Patient understands the risks and benefits of port placement and wished to proceed with the procedure. Consent was signed on the chart. PROCEDURE: The patient was taken to the operating suite, was prepped and draped in the sterile fashion. A surgical pause was performed. Ultrasound was used to locate the internal jugular vein. Once located anesthetic was infiltrated above it. Using micro-access kit, the right internal vein was accessed. Dark nonpulsatile blood was withdrawn. The wire was inserted. Fluoroscopy assured proper placement. The needle was removed. The micro-access dilator was advanced over the wire and the wire was removed. The regular wire was inserted and fluoroscopy assured proper placement. The wire was then secured. Local anesthetic was used to anesthetize from the neck for tunneling down to the right chest and for pocket creation. A 11 blade scalpel was used to make an incision over the right chest. Cautery was used to dissect down to the pectoral fascia. A pocket was created with blunt dissection. The dilator sheath was then advanced over the wire under fluoroscopy and the dilator and wire were removed. The Groshong catheter was inserted through the sheath and the sheath was then removed. The Groshong wire was removed. The catheter was then tunneled to the right chest pocket. Fluoroscopy was used to cut to length and this was then attached to the port which was then placed within the pocket. The port was then accessed without difficulty. It was then flushed with saline and then heparin. The subcutaneous tissues were then reapproximated using 3-0 Vicryl. The areas were then washed and dried. Skin Affix was placed over incision. The insertion point of the neck Skin Affix was placed over the incision. The patient tolerated the procedure well without complication and was taken to recovery room in stable condition. Chest x-ray is pending. Anesthesia Type mac Estimated Blood Loss Estimated blood loss (mL): min Specimens/Packing Specimens Removed SUNDAR Box DO Oct 29, 2020 20:34
== END 2020-10-28 12:10 | disposition home or self-care (01) ==
LOC: SDC 07:55
PROVIDERS: ATTEND Surgery
DX: C18.9 Malignant neoplasm of colon, unspecified (principal); I10 Essential (primary) hypertension; M19.90 Unspecified osteoarthritis, unspecified site; Z79.899 Other long term (current) drug therapy
CPT/HCPCS: 36561; 71045; 76000; 87081; C1788

== ENCOUNTER → 2021-02-08 | Outpatient (RCR) | payer OTHER ==
[2020-11-10 12:10] LABS: BASOPHILS % (AUTO) 1 % (0-10); EOSINOPHILS # (AUTO) 0.1 10^3/uL (0.0-0.3); EOSINOPHILS % (AUTO) 2 % (0-10); HEMATOCRIT 45 % (40-54); HEMOGLOBIN 14.6 g/dL (13.3-17.7); LYMPHOCYTES # (AUTO) 2.1 10^3/uL (1.0-4.0); LYMPHOCYTES % (AUTO) 27 % (12-44); MEAN CORPUSCULAR HEMOGLOBIN 30 pg (25-34); MEAN CORPUSCULAR HGB CONC 33 g/dL (32-36); MEAN CORPUSCULAR VOLUME 90 fL (80-99); MEAN PLATELET VOLUME 9.4 fL (9.0-12.2); MONOCYTES # (AUTO) 0.8 10^3/uL (0.0-1.0); MONOCYTES % (AUTO) 10 % (0-12); NEUTROPHILS # (AUTO) 4.6 10^3/uL (1.8-7.8); NEUTROPHILS % (AUTO) 60 % (42-75); PLATELET COUNT 260 10^3/uL (130-400); WHITE BLOOD COUNT 7.6 10^3/uL (4.3-11.0)
[2020-11-10 12:17] LABS: ALBUMIN 3.5 GM/DL (3.2-4.5); CHLORIDE 104 MMOL/L (98-107); POTASSIUM 4.1 MMOL/L (3.6-5.0); SODIUM 140 MMOL/L (135-145)
[2020-11-10 12:19] LABS: CALCIUM 8.6 MG/DL (8.5-10.1)
[2020-11-10 12:20] LABS: GLUCOSE 80 MG/DL (70-105); TOTAL PROTEIN 7.1 GM/DL (6.4-8.2)
[2020-11-10 12:21] LABS: CARBON DIOXIDE 28 MMOL/L (21-32)
[2020-11-10 12:22] LABS: BILIRUBIN,TOTAL 0.5 MG/DL (0.1-1.0)
[2020-11-10 12:23] LABS: ALKALINE PHOSPHATASE 85 U/L (40-136); CREATININE SERUM 1.03 MG/DL (0.60-1.30); GFR ESTIMATED > 60
[2020-11-10 12:25] LABS: BUN/CREATININE RATIO 15
[2020-11-10 12:26] LABS: ALANINE AMINOTRANSFERASE 26 U/L (0-55)
[2020-11-17 13:32] LABS: BASOPHILS % (AUTO) 1 % (0-10); EOSINOPHILS # (AUTO) 0.4 10^3/uL (0.0-0.3); EOSINOPHILS % (AUTO) 6 % (0-10); HEMATOCRIT 45 % (40-54); HEMOGLOBIN 14.7 g/dL (13.3-17.7); LYMPHOCYTES # (AUTO) 1.8 10^3/uL (1.0-4.0); LYMPHOCYTES % (AUTO) 27 % (12-44); MEAN CORPUSCULAR HEMOGLOBIN 30 pg (25-34); MEAN CORPUSCULAR HGB CONC 33 g/dL (32-36); MEAN CORPUSCULAR VOLUME 91 fL (80-99); MEAN PLATELET VOLUME 9.4 fL (9.0-12.2); MONOCYTES # (AUTO) 0.4 10^3/uL (0.0-1.0); MONOCYTES % (AUTO) 6 % (0-12); NEUTROPHILS # (AUTO) 4.1 10^3/uL (1.8-7.8); NEUTROPHILS % (AUTO) 60 % (42-75); PLATELET COUNT 215 10^3/uL (130-400); WHITE BLOOD COUNT 6.8 10^3/uL (4.3-11.0)
[2020-11-17 13:54] LABS: BUN/CREATININE RATIO 17; CALCIUM 8.9 MG/DL (8.5-10.1); CARBON DIOXIDE 26 MMOL/L (21-32); CHLORIDE 102 MMOL/L (98-107); CREATININE SERUM 1.02 MG/DL (0.60-1.30); GFR ESTIMATED > 60; GLUCOSE 123 MG/DL (70-105); SODIUM 138 MMOL/L (135-145)
[2020-11-24 13:42] LABS: BASOPHILS % (AUTO) 1 % (0-10); EOSINOPHILS # (AUTO) 0.1 10^3/uL (0.0-0.3); EOSINOPHILS % (AUTO) 2 % (0-10); HEMATOCRIT 42 % (40-54); HEMOGLOBIN 14.1 g/dL (13.3-17.7); LYMPHOCYTES # (AUTO) 1.9 10^3/uL (1.0-4.0); LYMPHOCYTES % (AUTO) 31 % (12-44); MEAN CORPUSCULAR HEMOGLOBIN 30 pg (25-34); MEAN CORPUSCULAR HGB CONC 33 g/dL (32-36); MEAN CORPUSCULAR VOLUME 90 fL (80-99); MEAN PLATELET VOLUME 9.4 fL (9.0-12.2); MONOCYTES # (AUTO) 0.6 10^3/uL (0.0-1.0); MONOCYTES % (AUTO) 10 % (0-12); NEUTROPHILS # (AUTO) 3.4 10^3/uL (1.8-7.8); NEUTROPHILS % (AUTO) 56 % (42-75); PLATELET COUNT 184 10^3/uL (130-400); WHITE BLOOD COUNT 6.1 10^3/uL (4.3-11.0)
[2020-11-24 14:05] LABS: ALANINE AMINOTRANSFERASE 23 U/L (0-55); ALBUMIN 3.6 GM/DL (3.2-4.5); ALKALINE PHOSPHATASE 69 U/L (40-136); BILIRUBIN,TOTAL 0.5 MG/DL (0.1-1.0); BUN/CREATININE RATIO 18; CALCIUM 8.9 MG/DL (8.5-10.1); CARBON DIOXIDE 27 MMOL/L (21-32); CHLORIDE 104 MMOL/L (98-107); CREATININE SERUM 0.98 MG/DL (0.60-1.30); GFR ESTIMATED > 60; GLUCOSE 128 MG/DL (70-105); POTASSIUM 3.8 MMOL/L (3.6-5.0); SODIUM 139 MMOL/L (135-145); TOTAL PROTEIN 6.6 GM/DL (6.4-8.2)
[2020-12-01 12:05] LABS: BASOPHILS % (AUTO) 1 % (0-10); EOSINOPHILS # (AUTO) 0.5 10^3/uL (0.0-0.3); EOSINOPHILS % (AUTO) 9 % (0-10); HEMATOCRIT 45 % (40-54); HEMOGLOBIN 14.9 g/dL (13.3-17.7); LYMPHOCYTES % (AUTO) 33 % (12-44); MEAN CORPUSCULAR HEMOGLOBIN 30 pg (25-34); MEAN CORPUSCULAR HGB CONC 33 g/dL (32-36); MEAN CORPUSCULAR VOLUME 90 fL (80-99); MEAN PLATELET VOLUME 9.5 fL (9.0-12.2); MONOCYTES # (AUTO) 0.6 10^3/uL (0.0-1.0); MONOCYTES % (AUTO) 10 % (0-12); NEUTROPHILS % (AUTO) 47 % (42-75); PLATELET COUNT 219 10^3/uL (130-400); WHITE BLOOD COUNT 6.2 10^3/uL (4.3-11.0)
[2020-12-01 12:29] LABS: BUN/CREATININE RATIO 14; CALCIUM 9.1 MG/DL (8.5-10.1); CARBON DIOXIDE 27 MMOL/L (21-32); CHLORIDE 103 MMOL/L (98-107); CREATININE SERUM 1.12 MG/DL (0.60-1.30); GFR ESTIMATED > 60; GLUCOSE 110 MG/DL (70-105); POTASSIUM 4.5 MMOL/L (3.6-5.0); SODIUM 139 MMOL/L (135-145)
[2020-12-08 10:55] LABS: BASOPHILS # (AUTO) 0.1 10^3/uL (0.0-0.1); BASOPHILS % (AUTO) 1 % (0-10); EOSINOPHILS # (AUTO) 0.2 10^3/uL (0.0-0.3); EOSINOPHILS % (AUTO) 3 % (0-10); HEMATOCRIT 42 % (40-54); HEMOGLOBIN 13.9 g/dL (13.3-17.7); LYMPHOCYTES # (AUTO) 1.6 10^3/uL (1.0-4.0); LYMPHOCYTES % (AUTO) 31 % (12-44); MEAN CORPUSCULAR HEMOGLOBIN 30 pg (25-34); MEAN CORPUSCULAR HGB CONC 33 g/dL (32-36); MEAN CORPUSCULAR VOLUME 90 fL (80-99); MEAN PLATELET VOLUME 9.3 fL (9.0-12.2); MONOCYTES # (AUTO) 0.7 10^3/uL (0.0-1.0); MONOCYTES % (AUTO) 13 % (0-12); NEUTROPHILS # (AUTO) 2.6 10^3/uL (1.8-7.8); NEUTROPHILS % (AUTO) 50 % (42-75); PLATELET COUNT 164 10^3/uL (130-400); WHITE BLOOD COUNT 5.1 10^3/uL (4.3-11.0)
[2020-12-08 11:08] LABS: ALANINE AMINOTRANSFERASE 20 U/L (0-55); ALBUMIN 3.5 GM/DL (3.2-4.5); ALKALINE PHOSPHATASE 65 U/L (40-136); BILIRUBIN,TOTAL 0.5 MG/DL (0.1-1.0); BUN/CREATININE RATIO 18; CALCIUM 8.8 MG/DL (8.5-10.1); CARBON DIOXIDE 25 MMOL/L (21-32); CHLORIDE 104 MMOL/L (98-107); GFR ESTIMATED > 60; GLUCOSE 103 MG/DL (70-105); MAGNESIUM 1.9 MG/DL (1.6-2.4); SODIUM 139 MMOL/L (135-145); TOTAL PROTEIN 6.4 GM/DL (6.4-8.2)
[2020-12-15 11:25] LABS: BASOPHILS # (AUTO) 0.1 10^3/uL (0.0-0.1); BASOPHILS % (AUTO) 1 % (0-10); EOSINOPHILS # (AUTO) 0.7 10^3/uL (0.0-0.3); EOSINOPHILS % (AUTO) 10 % (0-10); HEMATOCRIT 44 % (40-54); HEMOGLOBIN 14.8 g/dL (13.3-17.7); LYMPHOCYTES # (AUTO) 2.7 10^3/uL (1.0-4.0); LYMPHOCYTES % (AUTO) 38 % (12-44); MEAN CORPUSCULAR HEMOGLOBIN 30 pg (25-34); MEAN CORPUSCULAR HGB CONC 34 g/dL (32-36); MEAN CORPUSCULAR VOLUME 89 fL (80-99); MEAN PLATELET VOLUME 9.4 fL (9.0-12.2); MONOCYTES # (AUTO) 0.9 10^3/uL (0.0-1.0); MONOCYTES % (AUTO) 13 % (0-12); NEUTROPHILS # (AUTO) 2.6 10^3/uL (1.8-7.8); NEUTROPHILS % (AUTO) 37 % (42-75); PLATELET COUNT 202 10^3/uL (130-400); WHITE BLOOD COUNT 7.1 10^3/uL (4.3-11.0)
[2020-12-15 11:43] LABS: BUN/CREATININE RATIO 17; CARBON DIOXIDE 27 MMOL/L (21-32); CHLORIDE 101 MMOL/L (98-107); CREATININE SERUM 1.02 MG/DL (0.60-1.30); GFR ESTIMATED > 60; GLUCOSE 73 MG/DL (70-105); POTASSIUM 3.8 MMOL/L (3.6-5.0); SODIUM 136 MMOL/L (135-145)
[2020-12-22 11:23] LABS: BASOPHILS # (AUTO) 0.1 10^3/uL (0.0-0.1); BASOPHILS % (AUTO) 1 % (0-10); EOSINOPHILS # (AUTO) 0.3 10^3/uL (0.0-0.3); EOSINOPHILS % (AUTO) 5 % (0-10); HEMATOCRIT 41 % (40-54); LYMPHOCYTES # (AUTO) 1.5 10^3/uL (1.0-4.0); LYMPHOCYTES % (AUTO) 30 % (12-44); MEAN CORPUSCULAR HEMOGLOBIN 30 pg (25-34); MEAN CORPUSCULAR HGB CONC 34 g/dL (32-36); MEAN CORPUSCULAR VOLUME 89 fL (80-99); MEAN PLATELET VOLUME 9.4 fL (9.0-12.2); MONOCYTES # (AUTO) 0.6 10^3/uL (0.0-1.0); MONOCYTES % (AUTO) 11 % (0-12); NEUTROPHILS # (AUTO) 2.7 10^3/uL (1.8-7.8); NEUTROPHILS % (AUTO) 52 % (42-75); PLATELET COUNT 152 10^3/uL (130-400); WHITE BLOOD COUNT 5.2 10^3/uL (4.3-11.0)
[2020-12-22 11:44] LABS: ALANINE AMINOTRANSFERASE 24 U/L (0-55); ALBUMIN 3.5 GM/DL (3.2-4.5); ALKALINE PHOSPHATASE 64 U/L (40-136); BILIRUBIN,TOTAL 0.4 MG/DL (0.1-1.0); BUN/CREATININE RATIO 16; CALCIUM 8.6 MG/DL (8.5-10.1); CARBON DIOXIDE 23 MMOL/L (21-32); CHLORIDE 105 MMOL/L (98-107); CREATININE SERUM 0.93 MG/DL (0.60-1.30); GFR ESTIMATED > 60; GLUCOSE 119 MG/DL (70-105); MAGNESIUM 1.9 MG/DL (1.6-2.4); POTASSIUM 3.9 MMOL/L (3.6-5.0); SODIUM 137 MMOL/L (135-145); TOTAL PROTEIN 6.3 GM/DL (6.4-8.2)
[2020-12-30 12:02] LABS: BASOPHILS % (AUTO) 1 % (0-10); EOSINOPHILS # (AUTO) 0.4 10^3/uL (0.0-0.3); EOSINOPHILS % (AUTO) 8 % (0-10); HEMATOCRIT 41 % (40-54); HEMOGLOBIN 13.8 g/dL (13.3-17.7); LYMPHOCYTES # (AUTO) 1.7 10^3/uL (1.0-4.0); LYMPHOCYTES % (AUTO) 33 % (12-44); MEAN CORPUSCULAR HEMOGLOBIN 30 pg (25-34); MEAN CORPUSCULAR HGB CONC 33 g/dL (32-36); MEAN CORPUSCULAR VOLUME 90 fL (80-99); MEAN PLATELET VOLUME 9.2 fL (9.0-12.2); MONOCYTES # (AUTO) 0.6 10^3/uL (0.0-1.0); MONOCYTES % (AUTO) 12 % (0-12); NEUTROPHILS # (AUTO) 2.4 10^3/uL (1.8-7.8); NEUTROPHILS % (AUTO) 46 % (42-75); PLATELET COUNT 179 10^3/uL (130-400); WHITE BLOOD COUNT 5.3 10^3/uL (4.3-11.0)
[2020-12-30 12:16] LABS: BUN/CREATININE RATIO 16; CALCIUM 8.7 MG/DL (8.5-10.1); CARBON DIOXIDE 24 MMOL/L (21-32); CHLORIDE 107 MMOL/L (98-107); CREATININE SERUM 0.97 MG/DL (0.60-1.30); GFR ESTIMATED > 60; GLUCOSE 110 MG/DL (70-105); POTASSIUM 4.3 MMOL/L (3.6-5.0); SODIUM 139 MMOL/L (135-145)
[2021-01-04 13:06] LABS: BASOPHILS # (AUTO) 0.1 10^3/uL (0.0-0.1); BASOPHILS % (AUTO) 1 % (0-10); EOSINOPHILS # (AUTO) 0.2 10^3/uL (0.0-0.3); EOSINOPHILS % (AUTO) 3 % (0-10); HEMATOCRIT 43 % (40-54); HEMOGLOBIN 14.8 g/dL (13.3-17.7); LYMPHOCYTES # (AUTO) 2.1 10^3/uL (1.0-4.0); LYMPHOCYTES % (AUTO) 31 % (12-44); MEAN CORPUSCULAR HEMOGLOBIN 31 pg (25-34); MEAN CORPUSCULAR HGB CONC 34 g/dL (32-36); MEAN CORPUSCULAR VOLUME 90 fL (80-99); MEAN PLATELET VOLUME 9.2 fL (9.0-12.2); MONOCYTES # (AUTO) 1.2 10^3/uL (0.0-1.0); MONOCYTES % (AUTO) 18 % (0-12); NEUTROPHILS # (AUTO) 3.1 10^3/uL (1.8-7.8); NEUTROPHILS % (AUTO) 46 % (42-75); PLATELET COUNT 159 10^3/uL (130-400); WHITE BLOOD COUNT 6.7 10^3/uL (4.3-11.0)
[2021-01-04 13:29] LABS: ALANINE AMINOTRANSFERASE 26 U/L (0-55); ALBUMIN 3.6 GM/DL (3.2-4.5); ALKALINE PHOSPHATASE 69 U/L (40-136); BILIRUBIN,TOTAL 0.5 MG/DL (0.1-1.0); BUN/CREATININE RATIO 13; CALCIUM 9.2 MG/DL (8.5-10.1); CARBON DIOXIDE 26 MMOL/L (21-32); CHLORIDE 104 MMOL/L (98-107); CREATININE SERUM 0.97 MG/DL (0.60-1.30); GFR ESTIMATED > 60; GLUCOSE 78 MG/DL (70-105); POTASSIUM 4.1 MMOL/L (3.6-5.0); SODIUM 140 MMOL/L (135-145); TOTAL PROTEIN 6.6 GM/DL (6.4-8.2)
[2021-01-17 14:24] LABS: BASOPHILS # (AUTO) 0.1 10^3/uL (0.0-0.1); BASOPHILS % (AUTO) 1 % (0-10); EOSINOPHILS # (AUTO) 0.2 10^3/uL (0.0-0.3); EOSINOPHILS % (AUTO) 3 % (0-10); HEMATOCRIT 43 % (40-54); HEMOGLOBIN 14.4 g/dL (13.3-17.7); LYMPHOCYTES # (AUTO) 2.4 10^3/uL (1.0-4.0); LYMPHOCYTES % (AUTO) 31 % (12-44); MEAN CORPUSCULAR HEMOGLOBIN 31 pg (25-34); MEAN CORPUSCULAR HGB CONC 34 g/dL (32-36); MEAN CORPUSCULAR VOLUME 91 fL (80-99); MEAN PLATELET VOLUME 9.8 fL (9.0-12.2); MONOCYTES # (AUTO) 1.1 10^3/uL (0.0-1.0); MONOCYTES % (AUTO) 15 % (0-12); NEUTROPHILS # (AUTO) 3.8 10^3/uL (1.8-7.8); NEUTROPHILS % (AUTO) 50 % (42-75); PLATELET COUNT 196 10^3/uL (130-400); WHITE BLOOD COUNT 7.6 10^3/uL (4.3-11.0)
[2021-01-17 14:40] LABS: BUN/CREATININE RATIO 21; CARBON DIOXIDE 23 MMOL/L (21-32); CHLORIDE 105 MMOL/L (98-107); CREATININE SERUM 0.87 MG/DL (0.60-1.30); GFR ESTIMATED > 60; GLUCOSE 89 MG/DL (70-105); POTASSIUM 3.9 MMOL/L (3.6-5.0); SODIUM 138 MMOL/L (135-145)
[2021-01-26 14:07] LABS: BASOPHILS % (AUTO) 0 % (0-10); EOSINOPHILS # (AUTO) 0.1 10^3/uL (0.0-0.3); EOSINOPHILS % (AUTO) 2 % (0-10); HEMATOCRIT 40 % (40-54); HEMOGLOBIN 13.3 g/dL (13.3-17.7); LYMPHOCYTES # (AUTO) 1.1 10^3/uL (1.0-4.0); LYMPHOCYTES % (AUTO) 22 % (12-44); MEAN CORPUSCULAR HEMOGLOBIN 31 pg (25-34); MEAN CORPUSCULAR HGB CONC 33 g/dL (32-36); MEAN CORPUSCULAR VOLUME 93 fL (80-99); MEAN PLATELET VOLUME 9.7 fL (9.0-12.2); MONOCYTES # (AUTO) 0.6 10^3/uL (0.0-1.0); MONOCYTES % (AUTO) 12 % (0-12); NEUTROPHILS # (AUTO) 3.2 10^3/uL (1.8-7.8); NEUTROPHILS % (AUTO) 63 % (42-75); PLATELET COUNT 198 10^3/uL (130-400)
[2021-01-26 14:31] LABS: BUN/CREATININE RATIO 16; CALCIUM 8.7 MG/DL (8.5-10.1); CARBON DIOXIDE 25 MMOL/L (21-32); CHLORIDE 103 MMOL/L (98-107); CREATININE SERUM 0.89 MG/DL (0.60-1.30); GFR ESTIMATED > 60; GLUCOSE 96 MG/DL (70-105); POTASSIUM 4.2 MMOL/L (3.6-5.0); SODIUM 140 MMOL/L (135-145)
[2021-01-31 11:00] LABS: BASOPHILS % (AUTO) 1 % (0-10); EOSINOPHILS # (AUTO) 0.2 10^3/uL (0.0-0.3); EOSINOPHILS % (AUTO) 4 % (0-10); HEMATOCRIT 40 % (40-54); HEMOGLOBIN 13.5 g/dL (13.3-17.7); LYMPHOCYTES # (AUTO) 0.7 10^3/uL (1.0-4.0); LYMPHOCYTES % (AUTO) 21 % (12-44); MEAN CORPUSCULAR HEMOGLOBIN 32 pg (25-34); MEAN CORPUSCULAR HGB CONC 34 g/dL (32-36); MEAN CORPUSCULAR VOLUME 93 fL (80-99); MEAN PLATELET VOLUME 9.3 fL (9.0-12.2); MONOCYTES # (AUTO) 0.6 10^3/uL (0.0-1.0); MONOCYTES % (AUTO) 16 % (0-12); NEUTROPHILS # (AUTO) 2.1 10^3/uL (1.8-7.8); NEUTROPHILS % (AUTO) 58 % (42-75); PLATELET COUNT 144 10^3/uL (130-400); WHITE BLOOD COUNT 3.6 10^3/uL (4.3-11.0)
[2021-01-31 11:26] LABS: ALANINE AMINOTRANSFERASE 25 U/L (0-55); ALBUMIN 3.4 GM/DL (3.2-4.5); ALKALINE PHOSPHATASE 59 U/L (40-136); BILIRUBIN,TOTAL 0.5 MG/DL (0.1-1.0); BUN/CREATININE RATIO 17; CALCIUM 8.6 MG/DL (8.5-10.1); CARBON DIOXIDE 27 MMOL/L (21-32); CHLORIDE 105 MMOL/L (98-107); CREATININE SERUM 0.86 MG/DL (0.60-1.30); GFR ESTIMATED > 60; GLUCOSE 131 MG/DL (70-105); MAGNESIUM 2.1 MG/DL (1.6-2.4); POTASSIUM 3.8 MMOL/L (3.6-5.0); SODIUM 139 MMOL/L (135-145); TOTAL PROTEIN 6.1 GM/DL (6.4-8.2)
[2021-02-07 14:06] LABS: BASOPHILS % (AUTO) 1 % (0-10); EOSINOPHILS # (AUTO) 0.2 10^3/uL (0.0-0.3); EOSINOPHILS % (AUTO) 3 % (0-10); HEMATOCRIT 41 % (40-54); LYMPHOCYTES # (AUTO) 1.1 10^3/uL (1.0-4.0); LYMPHOCYTES % (AUTO) 21 % (12-44); MEAN CORPUSCULAR HEMOGLOBIN 32 pg (25-34); MEAN CORPUSCULAR HGB CONC 34 g/dL (32-36); MEAN CORPUSCULAR VOLUME 94 fL (80-99); MEAN PLATELET VOLUME 9.1 fL (9.0-12.2); MONOCYTES # (AUTO) 0.8 10^3/uL (0.0-1.0); MONOCYTES % (AUTO) 15 % (0-12); NEUTROPHILS # (AUTO) 3.1 10^3/uL (1.8-7.8); NEUTROPHILS % (AUTO) 59 % (42-75); PLATELET COUNT 156 10^3/uL (130-400); WHITE BLOOD COUNT 5.3 10^3/uL (4.3-11.0)
[2021-02-07 14:17] LABS: BUN/CREATININE RATIO 12; CARBON DIOXIDE 24 MMOL/L (21-32); CHLORIDE 100 MMOL/L (98-107); CREATININE SERUM 0.92 MG/DL (0.60-1.30); GFR ESTIMATED > 60; GLUCOSE 94 MG/DL (70-105); SODIUM 134 MMOL/L (135-145)
[~2021-02-08] MED LIST changes: +D5W 500 ML IV (CANCER CTR) 500 ML IV SCH; +FOSAPREPITANT (CANCER CENTER) 150 MG in NS (IVPB) CANCER CENTER ONLY 150 ML IV SCH; +LEUCOVORIN CALCIUM 500 MG, LEUCOVORIN CALCIUM 200 MG, LEUCOVORIN CALCIUM 100 MG in D5W ... IV SCH; -LISI-552 PO; +LISI20TA26 PO; -LISI40TA PO; +LISI40TA9 PO; +OXALIPLATIN 170 MG in D5W 250 ML IVPB (CANCER CTR) 250 ML IV SCH
== END | disposition home or self-care (01) ==
LOC: ONC 11-10 10:30
PROVIDERS: ATTEND Internal Medicine Hematology & Oncology
DX: Z51.11 Encounter for antineoplastic chemotherapy (principal); C18.7 Malignant neoplasm of sigmoid colon; R03.0 Elevated blood-pressure reading, without diagnosis of hypertension
CPT/HCPCS: 36591; 77290; 77295; 77300; 77307; 77334; 77336; 77417; 77470; 80048; 80053; 82378; 83735; 85025; 96367; 96368; 96375; 96411; 96413; 96416; 99205; 99213; 99215

== ENCOUNTER → 2021-03-30 | Outpatient (CLI) | payer OTHER ==
[~2021-03-30] MED LIST changes: -D5W 500 ML IV (CANCER CTR) 500 ML IV SCH; -FOSAPREPITANT (CANCER CENTER) 150 MG in NS (IVPB) CANCER CENTER ONLY 150 ML IV SCH; -LEUCOVORIN CALCIUM 500 MG, LEUCOVORIN CALCIUM 200 MG, LEUCOVORIN CALCIUM 100 MG in D5W ... IV SCH; -OXALIPLATIN 170 MG in D5W 250 ML IVPB (CANCER CTR) 250 ML IV SCH
--- NOTE | 2021-03-30 12:32 | Diagnostic Imaging Report ---
PROCEDURE: CT abdomen and pelvis without contrast. TECHNIQUE: Multiple contiguous axial images were obtained through the abdomen and pelvis without the use of intravenous contrast. Auto Exposure Controls were utilized during the CT exam to meet ALARA standards for radiation dose reduction. INDICATION: Malignant neoplasm of sigmoid colon. FINDINGS: The previous CT abdomen/pelvis exam of 09/21/2020 failed to show any sign of an acute abnormality. Reportedly, there is now clinical concern regarding infection/inflammation or obstruction of the renal collecting systems and urinary bladder. There does seem to be distortion of the mesenteric fat adjacent to the distal third of the left ureter. The left ureter itself does not appear to be obstructed by calculus. However, the distortion of the periureteral fat does suggest that there is an element of infection/inflammation present. There is no mass or abscess visualized. There are numerous diverticula involving the sigmoid colon but the edema/inflammation seems to be centered about the ureter and not the colon. Also, in the interval since the prior exam, the patient has had a low sigmoid resection and there are surgical clips now present at the rectosigmoid junction. The urinary bladder is not well distended but shows no definite abnormality. There is no evidence for obstruction of either collecting system and there is no sign of a solid renal mass or nephrolithiasis. There is no distortion of the perinephric fat about the kidneys to suggest pyelonephritis either. The previous exam did note areas of low density within the liver. Those findings are again evident and do not seem to have changed adversely. I suspect that these are cysts. If further study is desired, then ultrasound would be recommended. The spleen, pancreas, adrenals, gallbladder, aorta, and inferior vena cava are unremarkable for an acute abnormality. The stomach is not well distended and consequently difficult to assess. The bone windows show no evidence for a fracture or for a destructive lesion. There is fairly severe degenerative disc and bony disease at L5-S1. The lung bases are clear. IMPRESSION: 1. The distortion of the mesenteric fat about the distal third of the left ureter does suggest edema/inflammation/infection of the ureter. There is no acute abnormality of the collecting systems or the urinary bladder noted, otherwise. 2. There has been interval low sigmoid resection. There is diverticulosis of the sigmoid colon but there is no sign of acute diverticulitis. 3. The areas of low density in the liver seen previously do not appear to have changed adversely. These are more likely due to cysts than to metastatic disease. Additional considerations as above. 4. These results were discussed with Dr. Agosto. Dictated by: Dictated on workstation # [id number]
== END ==
LOC: RAD 11:38
PROVIDERS: ATTEND Internal Medicine Hematology & Oncology
DX: C18.7 Malignant neoplasm of sigmoid colon (principal); K57.30 Diverticulosis of large intestine without perforation or abscess without bleeding
CPT/HCPCS: 74176

== ENCOUNTER → 2021-05-10 | Outpatient (RCR) | payer OTHER ==
[2021-02-14 15:14] LABS: BASOPHILS % (AUTO) 1 % (0-10); EOSINOPHILS # (AUTO) 0.2 10^3/uL (0.0-0.3); EOSINOPHILS % (AUTO) 4 % (0-10); HEMATOCRIT 38 % (40-54); HEMOGLOBIN 13.3 g/dL (13.3-17.7); LYMPHOCYTES # (AUTO) 0.9 X 10^3 (1.0-4.0); LYMPHOCYTES % (AUTO) 18 % (12-44); MEAN CORPUSCULAR HEMOGLOBIN 33 pg (25-34); MEAN CORPUSCULAR HGB CONC 35 g/dL (32-36); MEAN CORPUSCULAR VOLUME 95 fL (80-99); MEAN PLATELET VOLUME 9.2 fL (9.0-12.2); MONOCYTES # (AUTO) 0.7 X 10^3 (0.0-1.0); MONOCYTES % (AUTO) 14 % (0-12); NEUTROPHILS # (AUTO) 3.1 X 10^3 (1.8-7.8); NEUTROPHILS % (AUTO) 64 % (42-75); PLATELET COUNT 187 10^3/uL (130-400); WHITE BLOOD COUNT 4.9 10^3/uL (4.3-11.0)
[2021-02-14 15:29] LABS: ALANINE AMINOTRANSFERASE 24 U/L (0-55); ALBUMIN 3.6 GM/DL (3.2-4.5); ALKALINE PHOSPHATASE 63 U/L (40-136); BILIRUBIN,TOTAL 0.7 MG/DL (0.1-1.0); BUN/CREATININE RATIO 17; CALCIUM 9.2 MG/DL (8.5-10.1); CARBON DIOXIDE 26 MMOL/L (21-32); CHLORIDE 103 MMOL/L (98-107); CREATININE SERUM 0.93 MG/DL (0.60-1.30); GFR ESTIMATED > 60; GLUCOSE 115 MG/DL (70-105); POTASSIUM 3.8 MMOL/L (3.6-5.0); SODIUM 138 MMOL/L (135-145); TOTAL PROTEIN 6.6 GM/DL (6.4-8.2)
[2021-02-23 15:38] LABS: BASOPHILS % (AUTO) 1 % (0-10); EOSINOPHILS # (AUTO) 0.1 10^3/uL (0.0-0.3); EOSINOPHILS % (AUTO) 3 % (0-10); HEMATOCRIT 38 % (40-54); HEMOGLOBIN 13.2 g/dL (13.3-17.7); LYMPHOCYTES # (AUTO) 0.6 10^3/uL (1.0-4.0); LYMPHOCYTES % (AUTO) 14 % (12-44); MEAN CORPUSCULAR HEMOGLOBIN 34 pg (25-34); MEAN CORPUSCULAR HGB CONC 35 g/dL (32-36); MEAN CORPUSCULAR VOLUME 97 fL (80-99); MEAN PLATELET VOLUME 9.2 fL (9.0-12.2); MONOCYTES # (AUTO) 0.7 10^3/uL (0.0-1.0); MONOCYTES % (AUTO) 16 % (0-12); NEUTROPHILS # (AUTO) 2.7 10^3/uL (1.8-7.8); NEUTROPHILS % (AUTO) 66 % (42-75); PLATELET COUNT 179 10^3/uL (130-400); WHITE BLOOD COUNT 4.2 10^3/uL (4.3-11.0)
[2021-02-23 15:58] LABS: ALANINE AMINOTRANSFERASE 26 U/L (0-55); ALBUMIN 3.6 GM/DL (3.2-4.5); ALKALINE PHOSPHATASE 59 U/L (40-136); BILIRUBIN,TOTAL 0.8 MG/DL (0.1-1.0); BUN/CREATININE RATIO 18; CALCIUM 8.6 MG/DL (8.5-10.1); CARBON DIOXIDE 27 MMOL/L (21-32); CHLORIDE 101 MMOL/L (98-107); GFR ESTIMATED > 60; GLUCOSE 115 MG/DL (70-105); POTASSIUM 4.2 MMOL/L (3.6-5.0); SODIUM 136 MMOL/L (135-145); TOTAL PROTEIN 6.3 GM/DL (6.4-8.2)
[2021-03-02 09:40] LABS: BASOPHILS % (AUTO) 1 % (0-10); EOSINOPHILS # (AUTO) 0.1 10^3/uL (0.0-0.3); EOSINOPHILS % (AUTO) 4 % (0-10); HEMATOCRIT 40 % (40-54); HEMOGLOBIN 13.4 g/dL (13.3-17.7); LYMPHOCYTES # (AUTO) 0.6 10^3/uL (1.0-4.0); LYMPHOCYTES % (AUTO) 16 % (12-44); MEAN CORPUSCULAR HEMOGLOBIN 33 pg (25-34); MEAN CORPUSCULAR HGB CONC 34 g/dL (32-36); MEAN CORPUSCULAR VOLUME 99 fL (80-99); MONOCYTES # (AUTO) 0.6 10^3/uL (0.0-1.0); MONOCYTES % (AUTO) 16 % (0-12); NEUTROPHILS # (AUTO) 2.4 10^3/uL (1.8-7.8); NEUTROPHILS % (AUTO) 63 % (42-75); PLATELET COUNT 176 10^3/uL (130-400); WHITE BLOOD COUNT 3.8 10^3/uL (4.3-11.0)
[2021-03-02 09:57] LABS: ALANINE AMINOTRANSFERASE 23 U/L (0-55); ALBUMIN 3.5 GM/DL (3.2-4.5); ALKALINE PHOSPHATASE 57 U/L (40-136); BILIRUBIN,TOTAL 0.6 MG/DL (0.1-1.0); BUN/CREATININE RATIO 14; CALCIUM 8.7 MG/DL (8.5-10.1); CARBON DIOXIDE 29 MMOL/L (21-32); CHLORIDE 103 MMOL/L (98-107); CREATININE SERUM 0.96 MG/DL (0.60-1.30); GFR ESTIMATED > 60; GLUCOSE 109 MG/DL (70-105); POTASSIUM 4.1 MMOL/L (3.6-5.0); SODIUM 138 MMOL/L (135-145); TOTAL PROTEIN 6.1 GM/DL (6.4-8.2)
[2021-03-16 16:33] LABS: BILIRUBIN,URINE NEGATIVE (NEGATIVE); CLARITY,URINE SL CLOUDY; COLOR,URINE YELLOW; GLUCOSE, URINE (UA) NEGATIVE (NEGATIVE); KETONES,URINE NEGATIVE (NEGATIVE); LEUKOCYTE ESTERASE ,URINE 1+ (NEGATIVE); NITRITE,URINE NEGATIVE (NEGATIVE); PROTEIN,URINE 2+ (NEGATIVE)
[2021-03-16 16:45] LABS: BACTERIA,URINE TRACE /HPF
[2021-03-22 09:55] LABS: CLARITY,URINE CLOUDY; COLOR,URINE RED; GLUCOSE, URINE (UA) 3+ (NEGATIVE); KETONES,URINE 1+ (NEGATIVE); LEUKOCYTE ESTERASE ,URINE 3+ (NEGATIVE); NITRITE,URINE POSITIVE (NEGATIVE); PH,URINE 6.5 (5-9); PROTEIN,URINE 3+ (NEGATIVE)
[2021-03-22 11:50] LABS: BILIRUBIN,URINE 3+ (NEGATIVE)
[2021-03-22 11:51] LABS: BACTERIA,URINE FEW /HPF; RBC,URINE TNTC /HPF; WBC,URINE TNTC /HPF
[2021-03-30 10:55] LABS: BASOPHILS # (AUTO) 0.1 10^3/uL (0.0-0.1); BASOPHILS % (AUTO) 1 % (0-10); EOSINOPHILS # (AUTO) 0.5 10^3/uL (0.0-0.3); EOSINOPHILS % (AUTO) 8 % (0-10); HEMATOCRIT 42 % (40-54); HEMOGLOBIN 14.6 g/dL (13.3-17.7); LYMPHOCYTES # (AUTO) 1.2 10^3/uL (1.0-4.0); LYMPHOCYTES % (AUTO) 17 % (12-44); MEAN CORPUSCULAR HEMOGLOBIN 34 pg (25-34); MEAN CORPUSCULAR HGB CONC 34 g/dL (32-36); MEAN CORPUSCULAR VOLUME 99 fL (80-99); MONOCYTES # (AUTO) 0.6 10^3/uL (0.0-1.0); MONOCYTES % (AUTO) 9 % (0-12); NEUTROPHILS # (AUTO) 4.3 10^3/uL (1.8-7.8); NEUTROPHILS % (AUTO) 64 % (42-75); PLATELET COUNT 283 10^3/uL (130-400); WHITE BLOOD COUNT 6.8 10^3/uL (4.3-11.0)
[2021-03-30 11:00] LABS: CLARITY,URINE CLOUDY; COLOR,URINE ORANGE; GLUCOSE, URINE (UA) TRACE (NEGATIVE); KETONES,URINE TRACE (NEGATIVE); LEUKOCYTE ESTERASE ,URINE 2+ (NEGATIVE); NITRITE,URINE POSITIVE (NEGATIVE); PH,URINE 6.5 (5-9); PROTEIN,URINE 3+ (NEGATIVE)
[2021-03-30 11:14] LABS: BACTERIA,URINE FEW /HPF; BILIRUBIN,URINE 2+ (NEGATIVE); RBC,URINE TNTC /HPF; WBC,URINE TNTC /HPF
[2021-03-30 11:15] LABS: ALBUMIN 3.8 GM/DL (3.2-4.5); BILIRUBIN,TOTAL 0.9 MG/DL (0.1-1.0); CALCIUM 9.1 MG/DL (8.5-10.1); CREATININE SERUM 2.01 MG/DL (0.60-1.30); MAGNESIUM 2.1 MG/DL (1.6-2.4); POTASSIUM 4.3 MMOL/L (3.6-5.0); TOTAL PROTEIN 6.7 GM/DL (6.4-8.2)
[2021-04-12 13:13] LABS: BASOPHILS % (AUTO) 1 % (0-10); EOSINOPHILS # (AUTO) 0.4 10^3/uL (0.0-0.3); EOSINOPHILS % (AUTO) 6 % (0-10); HEMATOCRIT 38 % (40-54); HEMOGLOBIN 12.7 g/dL (13.3-17.7); LYMPHOCYTES # (AUTO) 0.7 10^3/uL (1.0-4.0); LYMPHOCYTES % (AUTO) 13 % (12-44); MEAN CORPUSCULAR HEMOGLOBIN 33 pg (25-34); MEAN CORPUSCULAR HGB CONC 33 g/dL (32-36); MEAN CORPUSCULAR VOLUME 98 fL (80-99); MEAN PLATELET VOLUME 9.1 fL (9.0-12.2); MONOCYTES # (AUTO) 0.4 10^3/uL (0.0-1.0); MONOCYTES % (AUTO) 8 % (0-12); NEUTROPHILS # (AUTO) 3.9 10^3/uL (1.8-7.8); NEUTROPHILS % (AUTO) 72 % (42-75); PLATELET COUNT 171 10^3/uL (130-400); WHITE BLOOD COUNT 5.5 10^3/uL (4.3-11.0)
[2021-04-12 13:43] LABS: ALANINE AMINOTRANSFERASE 23 U/L (0-55); ALBUMIN 3.5 GM/DL (3.2-4.5); ALKALINE PHOSPHATASE 62 U/L (40-136); BILIRUBIN,TOTAL 0.5 MG/DL (0.1-1.0); BUN/CREATININE RATIO 20; CALCIUM 8.9 MG/DL (8.5-10.1); CARBON DIOXIDE 28 MMOL/L (21-32); CHLORIDE 103 MMOL/L (98-107); CREATININE SERUM 0.89 MG/DL (0.60-1.30); GFR ESTIMATED > 60; GLUCOSE 140 MG/DL (70-105); POTASSIUM 3.8 MMOL/L (3.6-5.0); SODIUM 138 MMOL/L (135-145); TOTAL PROTEIN 6.1 GM/DL (6.4-8.2)
[2021-04-20 13:23] LABS: BASOPHILS % (AUTO) 1 % (0-10); EOSINOPHILS # (AUTO) 0.4 10^3/uL (0.0-0.3); EOSINOPHILS % (AUTO) 7 % (0-10); HEMATOCRIT 40 % (40-54); HEMOGLOBIN 13.5 g/dL (13.3-17.7); LYMPHOCYTES # (AUTO) 0.9 10^3/uL (1.0-4.0); LYMPHOCYTES % (AUTO) 15 % (12-44); MEAN CORPUSCULAR HEMOGLOBIN 34 pg (25-34); MEAN CORPUSCULAR HGB CONC 34 g/dL (32-36); MEAN CORPUSCULAR VOLUME 99 fL (80-99); MEAN PLATELET VOLUME 9.1 fL (9.0-12.2); MONOCYTES # (AUTO) 0.6 10^3/uL (0.0-1.0); MONOCYTES % (AUTO) 10 % (0-12); NEUTROPHILS % (AUTO) 66 % (42-75); PLATELET COUNT 201 10^3/uL (130-400); WHITE BLOOD COUNT 6.1 10^3/uL (4.3-11.0)
[2021-04-20 13:40] LABS: BUN/CREATININE RATIO 17; CALCIUM 8.9 MG/DL (8.5-10.1); CARBON DIOXIDE 23 MMOL/L (21-32); CHLORIDE 106 MMOL/L (98-107); CREATININE SERUM 0.99 MG/DL (0.60-1.30); GFR ESTIMATED > 60; GLUCOSE 82 MG/DL (70-105); POTASSIUM 4.1 MMOL/L (3.6-5.0); SODIUM 138 MMOL/L (135-145)
[2021-04-26 14:12] LABS: BASOPHILS % (AUTO) 1 % (0-10); EOSINOPHILS # (AUTO) 0.2 10^3/uL (0.0-0.3); EOSINOPHILS % (AUTO) 5 % (0-10); HEMATOCRIT 38 % (40-54); HEMOGLOBIN 13.4 g/dL (13.3-17.7); LYMPHOCYTES # (AUTO) 0.7 10^3/uL (1.0-4.0); LYMPHOCYTES % (AUTO) 18 % (12-44); MEAN CORPUSCULAR HEMOGLOBIN 34 pg (25-34); MEAN CORPUSCULAR HGB CONC 35 g/dL (32-36); MEAN CORPUSCULAR VOLUME 98 fL (80-99); MEAN PLATELET VOLUME 9.5 fL (9.0-12.2); MONOCYTES # (AUTO) 0.6 10^3/uL (0.0-1.0); MONOCYTES % (AUTO) 16 % (0-12); NEUTROPHILS # (AUTO) 2.2 10^3/uL (1.8-7.8); NEUTROPHILS % (AUTO) 59 % (42-75); PLATELET COUNT 175 10^3/uL (130-400); WHITE BLOOD COUNT 3.7 10^3/uL (4.3-11.0)
[2021-04-26 14:16] LABS: ALANINE AMINOTRANSFERASE 31 U/L (0-55); ALBUMIN 3.6 GM/DL (3.2-4.5); ALKALINE PHOSPHATASE 65 U/L (40-136); BILIRUBIN,TOTAL 0.7 MG/DL (0.1-1.0); BUN/CREATININE RATIO 15; CALCIUM 9.1 MG/DL (8.5-10.1); CARBON DIOXIDE 26 MMOL/L (21-32); CHLORIDE 104 MMOL/L (98-107); CREATININE SERUM 1.04 MG/DL (0.60-1.30); GFR ESTIMATED > 60; GLUCOSE 106 MG/DL (70-105); POTASSIUM 3.8 MMOL/L (3.6-5.0); SODIUM 139 MMOL/L (135-145); TOTAL PROTEIN 6.4 GM/DL (6.4-8.2)
[2021-05-03 11:21] LABS: BASOPHILS % (AUTO) 1 % (0-10); EOSINOPHILS # (AUTO) 0.4 10^3/uL (0.0-0.3); EOSINOPHILS % (AUTO) 11 % (0-10); HEMATOCRIT 39 % (40-54); HEMOGLOBIN 13.7 g/dL (13.3-17.7); LYMPHOCYTES # (AUTO) 0.8 X 10^3 (1.0-4.0); LYMPHOCYTES % (AUTO) 23 % (12-44); MEAN CORPUSCULAR HEMOGLOBIN 34 pg (25-34); MEAN CORPUSCULAR HGB CONC 35 g/dL (32-36); MEAN CORPUSCULAR VOLUME 96 fL (80-99); MEAN PLATELET VOLUME 9.2 fL (9.0-12.2); MONOCYTES # (AUTO) 0.4 X 10^3 (0.0-1.0); MONOCYTES % (AUTO) 11 % (0-12); NEUTROPHILS # (AUTO) 1.7 X 10^3 (1.8-7.8); NEUTROPHILS % (AUTO) 53 % (42-75); PLATELET COUNT 168 10^3/uL (130-400); WHITE BLOOD COUNT 3.3 10^3/uL (4.3-11.0)
[2021-05-03 11:39] LABS: BUN/CREATININE RATIO 17; CALCIUM 8.8 MG/DL (8.5-10.1); CARBON DIOXIDE 27 MMOL/L (21-32); CHLORIDE 104 MMOL/L (98-107); CREATININE SERUM 1.01 MG/DL (0.60-1.30); GFR ESTIMATED > 60; GLUCOSE 129 MG/DL (70-105); POTASSIUM 4.3 MMOL/L (3.6-5.0); SODIUM 138 MMOL/L (135-145)
[~2021-05-10] MED LIST changes: +D5W 500 ML IV (CANCER CTR) 500 ML IV SCH; +FOSAPREPITANT (CANCER CENTER) 150 MG in NS (IVPB) CANCER CENTER ONLY 150 ML IV SCH; +LEUCOVORIN CALCIUM 500 MG, LEUCOVORIN CALCIUM 200 MG, LEUCOVORIN CALCIUM 100 MG in D5W ... IV SCH; +OXALIPLATIN 170 MG in D5W 250 ML IVPB (CANCER CTR) 250 ML IV SCH
== END | disposition home or self-care (01) ==
LOC: ONC 02-09 13:50
PROVIDERS: ATTEND Internal Medicine Hematology & Oncology
DX: Z51.11 Encounter for antineoplastic chemotherapy (principal); C20 Malignant neoplasm of rectum; R03.0 Elevated blood-pressure reading, without diagnosis of hypertension
CPT/HCPCS: 77336; 77412 ×2; G0463; 36591; 77280; 77417; 80048; 80053; 81000; 82378; 83735; 85025; 87088; 96367; 96368; 96375; 96411; 96413; 99213

== ENCOUNTER 2021-06-13 10:51 | Outpatient (RCR) | payer OTHER ==
[2021-05-11 09:11] LABS: BASOPHILS # (AUTO) 0.1 10^3/uL (0.0-0.1); BASOPHILS % (AUTO) 2 % (0-10); EOSINOPHILS # (AUTO) 0.2 10^3/uL (0.0-0.3); EOSINOPHILS % (AUTO) 5 % (0-10); HEMATOCRIT 42 % (40-54); HEMOGLOBIN 14.5 g/dL (13.3-17.7); LYMPHOCYTES # (AUTO) 0.9 10^3/uL (1.0-4.0); LYMPHOCYTES % (AUTO) 23 % (12-44); MEAN CORPUSCULAR HEMOGLOBIN 34 pg (25-34); MEAN CORPUSCULAR HGB CONC 35 g/dL (32-36); MEAN CORPUSCULAR VOLUME 97 fL (80-99); MEAN PLATELET VOLUME 9.2 fL (9.0-12.2); MONOCYTES # (AUTO) 0.8 10^3/uL (0.0-1.0); MONOCYTES % (AUTO) 19 % (0-12); NEUTROPHILS % (AUTO) 51 % (42-75); PLATELET COUNT 146 10^3/uL (130-400); WHITE BLOOD COUNT 3.9 10^3/uL (4.3-11.0)
[2021-05-11 09:26] LABS: BUN/CREATININE RATIO 15; CALCIUM 8.8 MG/DL (8.5-10.1); CARBON DIOXIDE 26 MMOL/L (21-32); CHLORIDE 102 MMOL/L (98-107); CREATININE SERUM 1.06 MG/DL (0.60-1.30); GFR ESTIMATED > 60; GLUCOSE 107 MG/DL (70-105); POTASSIUM 3.9 MMOL/L (3.6-5.0); SODIUM 137 MMOL/L (135-145)
[2021-05-17 10:38] LABS: BASOPHILS % (AUTO) 1 % (0-10); EOSINOPHILS # (AUTO) 0.2 10^3/uL (0.0-0.3); EOSINOPHILS % (AUTO) 5 % (0-10); HEMATOCRIT 42 % (40-54); HEMOGLOBIN 14.1 g/dL (13.3-17.7); LYMPHOCYTES # (AUTO) 0.9 10^3/uL (1.0-4.0); LYMPHOCYTES % (AUTO) 25 % (12-44); MEAN CORPUSCULAR HEMOGLOBIN 33 pg (25-34); MEAN CORPUSCULAR HGB CONC 34 g/dL (32-36); MEAN CORPUSCULAR VOLUME 97 fL (80-99); MEAN PLATELET VOLUME 9.3 fL (9.0-12.2); MONOCYTES # (AUTO) 0.6 10^3/uL (0.0-1.0); MONOCYTES % (AUTO) 17 % (0-12); NEUTROPHILS # (AUTO) 1.9 10^3/uL (1.8-7.8); NEUTROPHILS % (AUTO) 51 % (42-75); PLATELET COUNT 189 10^3/uL (130-400); WHITE BLOOD COUNT 3.7 10^3/uL (4.3-11.0)
[2021-05-17 11:01] LABS: ALBUMIN 3.6 GM/DL (3.2-4.5); BILIRUBIN,TOTAL 0.6 MG/DL (0.1-1.0); CREATININE SERUM 0.97 MG/DL (0.60-1.30); MAGNESIUM 2.1 MG/DL (1.6-2.4); POTASSIUM 4.1 MMOL/L (3.6-5.0); TOTAL PROTEIN 6.6 GM/DL (6.4-8.2)
[2021-05-25 11:22] LABS: BASOPHILS % (AUTO) 1 % (0-10); EOSINOPHILS # (AUTO) 0.3 10^3/uL (0.0-0.3); EOSINOPHILS % (AUTO) 5 % (0-10); HEMATOCRIT 41 % (40-54); LYMPHOCYTES # (AUTO) 0.9 10^3/uL (1.0-4.0); LYMPHOCYTES % (AUTO) 16 % (12-44); MEAN CORPUSCULAR HEMOGLOBIN 33 pg (25-34); MEAN CORPUSCULAR HGB CONC 35 g/dL (32-36); MEAN CORPUSCULAR VOLUME 96 fL (80-99); MEAN PLATELET VOLUME 8.9 fL (9.0-12.2); MONOCYTES # (AUTO) 0.6 10^3/uL (0.0-1.0); MONOCYTES % (AUTO) 11 % (0-12); NEUTROPHILS # (AUTO) 3.7 10^3/uL (1.8-7.8); NEUTROPHILS % (AUTO) 66 % (42-75); PLATELET COUNT 171 10^3/uL (130-400); WHITE BLOOD COUNT 5.6 10^3/uL (4.3-11.0)
[2021-05-25 11:43] LABS: CALCIUM 8.9 MG/DL (8.5-10.1); CREATININE SERUM 0.87 MG/DL (0.60-1.30); POTASSIUM 4.2 MMOL/L (3.6-5.0)
[2021-05-30 10:24] LABS: BASOPHILS % (AUTO) 1 % (0-10); EOSINOPHILS # (AUTO) 0.1 10^3/uL (0.0-0.3); EOSINOPHILS % (AUTO) 3 % (0-10); HEMATOCRIT 40 % (40-54); HEMOGLOBIN 13.7 g/dL (13.3-17.7); LYMPHOCYTES # (AUTO) 0.7 10^3/uL (1.0-4.0); LYMPHOCYTES % (AUTO) 17 % (12-44); MEAN CORPUSCULAR HEMOGLOBIN 33 pg (25-34); MEAN CORPUSCULAR HGB CONC 34 g/dL (32-36); MEAN CORPUSCULAR VOLUME 96 fL (80-99); MONOCYTES # (AUTO) 0.6 10^3/uL (0.0-1.0); MONOCYTES % (AUTO) 15 % (0-12); NEUTROPHILS # (AUTO) 2.5 10^3/uL (1.8-7.8); NEUTROPHILS % (AUTO) 64 % (42-75); PLATELET COUNT 157 10^3/uL (130-400); WHITE BLOOD COUNT 3.8 10^3/uL (4.3-11.0)
[2021-05-30 10:47] LABS: ALBUMIN 3.4 GM/DL (3.2-4.5); BILIRUBIN,TOTAL 0.7 MG/DL (0.1-1.0); CALCIUM 9.1 MG/DL (8.5-10.1); CREATININE SERUM 1.07 MG/DL (0.60-1.30); MAGNESIUM 2.1 MG/DL (1.6-2.4); POTASSIUM 3.7 MMOL/L (3.6-5.0); TOTAL PROTEIN 6.4 GM/DL (6.4-8.2)
[2021-06-09 11:26] LABS: BASOPHILS % (AUTO) 1 % (0-10); EOSINOPHILS # (AUTO) 0.1 10^3/uL (0.0-0.3); EOSINOPHILS % (AUTO) 3 % (0-10); HEMATOCRIT 40 % (40-54); HEMOGLOBIN 13.8 g/dL (13.3-17.7); LYMPHOCYTES # (AUTO) 0.9 10^3/uL (1.0-4.0); LYMPHOCYTES % (AUTO) 26 % (12-44); MEAN CORPUSCULAR HEMOGLOBIN 33 pg (25-34); MEAN CORPUSCULAR HGB CONC 35 g/dL (32-36); MEAN CORPUSCULAR VOLUME 95 fL (80-99); MEAN PLATELET VOLUME 8.9 fL (9.0-12.2); MONOCYTES # (AUTO) 0.8 10^3/uL (0.0-1.0); MONOCYTES % (AUTO) 25 % (0-12); NEUTROPHILS # (AUTO) 1.5 10^3/uL (1.8-7.8); NEUTROPHILS % (AUTO) 45 % (42-75); PLATELET COUNT 165 10^3/uL (130-400); WHITE BLOOD COUNT 3.3 10^3/uL (4.3-11.0)
[2021-06-09 11:48] LABS: CALCIUM 9.1 MG/DL (8.5-10.1); CREATININE SERUM 1.07 MG/DL (0.60-1.30); POTASSIUM 4.1 MMOL/L (3.6-5.0)
[2021-06-13 11:05] LABS: BASOPHILS % (AUTO) 1 % (0-10); EOSINOPHILS # (AUTO) 0.1 10^3/uL (0.0-0.3); EOSINOPHILS % (AUTO) 2 % (0-10); HEMATOCRIT 41 % (40-54); HEMOGLOBIN 14.1 g/dL (13.3-17.7); LYMPHOCYTES # (AUTO) 0.7 10^3/uL (1.0-4.0); LYMPHOCYTES % (AUTO) 21 % (12-44); MEAN CORPUSCULAR HEMOGLOBIN 33 pg (25-34); MEAN CORPUSCULAR HGB CONC 34 g/dL (32-36); MEAN CORPUSCULAR VOLUME 96 fL (80-99); MEAN PLATELET VOLUME 9.4 fL (9.0-12.2); MONOCYTES # (AUTO) 0.6 10^3/uL (0.0-1.0); MONOCYTES % (AUTO) 18 % (0-12); NEUTROPHILS % (AUTO) 58 % (42-75); PLATELET COUNT 141 10^3/uL (130-400); WHITE BLOOD COUNT 3.4 10^3/uL (4.3-11.0)
[2021-06-13 11:28] LABS: ALBUMIN 3.6 GM/DL (3.2-4.5); BILIRUBIN,TOTAL 0.6 MG/DL (0.1-1.0); CALCIUM 9.6 MG/DL (8.5-10.1); CREATININE SERUM 0.99 MG/DL (0.60-1.30); POTASSIUM 4.1 MMOL/L (3.6-5.0); TOTAL PROTEIN 6.4 GM/DL (6.4-8.2)
== END 2021-08-09 | disposition home or self-care (01) ==
LOC: ONC 10:51
PROVIDERS: ATTEND Internal Medicine Hematology & Oncology
DX: Z51.11 Encounter for antineoplastic chemotherapy (principal); C20 Malignant neoplasm of rectum; I10 Essential (primary) hypertension
CPT/HCPCS: 36591; 80048; 80053; 82378; 83735; 85025; 96367; 96368; 96375; 96411; 96413; 99213

== ENCOUNTER → 2021-06-28 | Outpatient (CLI) | payer OTHER ==
[~2021-06-28] MED LIST changes: +BARIUM SUSPENSION 2.1% (VANILLA SILQ) 450 ML PO ONE; +CATHETER FLUSH 10 ML SYR IV PRN; -D5W 500 ML IV (CANCER CTR) 500 ML IV SCH; -FOSAPREPITANT (CANCER CENTER) 150 MG in NS (IVPB) CANCER CENTER ONLY 150 ML IV SCH; +HOLD METFORMIN - RECEIVED CONTRAST 20 ML VIAL IV SCH; +IOHEXOL 350 MG/ML 100 ML (OMNIPAQUE 350) VIAL IV ONE; -LEUCOVORIN CALCIUM 500 MG, LEUCOVORIN CALCIUM 200 MG, LEUCOVORIN CALCIUM 100 MG in D5W ... IV SCH; +NS 100 ML (IVPB) BAG IV ONE; -OXALIPLATIN 170 MG in D5W 250 ML IVPB (CANCER CTR) 250 ML IV SCH
--- NOTE | 2021-06-28 13:01 | Diagnostic Imaging Report ---
INDICATION: Rectal cancer followup. TECHNIQUE: Pre and post intravenous contrast axial imaging of the abdomen and pelvis and post contrast axial imaging of the chest were performed. Auto Exposure Controls were utilized during the CT exam to meet ALARA standards for radiation dose reduction. COMPARISON: 03/30/2021. FINDINGS: CT CHEST: A Port-A-Cath is seen over the right chest wall. There are no enlarged mediastinal or hilar nodes. There are no enlarged axillary nodes or chest wall lesions. There is no pleural or pericardial fluid. Lung parenchymal windows demonstrate no focal nodules or infiltrates. There is no overt bony abnormality in the chest. CT ABDOMEN/PELVIS: The liver shows a few scattered small hypodense lesions which appear stable compared to the prior study and may represent cysts. These are difficult to characterize due to their small size. The spleen, adrenals, and pancreas are normal. The kidneys bilaterally are unremarkable. There is no retroperitoneal mass or adenopathy. There is no ascites or abnormal fluid collection. The visualized bowel loops show no obstruction. There are uncomplicated sigmoid diverticula. There are postop changes in the anterior abdominal wall. There is no destructive bony lesion. There are degenerative findings in the lumbar spine. IMPRESSION: CT CHEST: No evidence of metastatic disease or acute finding. CT ABDOMEN/PELVIS: Small low-density lesions are difficult to characterize but may be small cysts, unchanged compared to the prior study. There is no new finding compared to the previous study. Dictated by: Dictated on workstation # [id number]
== END ==
LOC: RAD 09:40
PROVIDERS: ATTEND Nurse Practitioner Adult Health
DX: C20 Malignant neoplasm of rectum (principal); K76.9 Liver disease, unspecified
CPT/HCPCS: 71260; 74178

== ENCOUNTER 2021-09-05 10:57 | Outpatient (RCR) | payer OTHER ==
[~2021-09-05 10:57] MED LIST changes: -BARIUM SUSPENSION 2.1% (VANILLA SILQ) 450 ML PO ONE; -CATHETER FLUSH 10 ML SYR IV PRN; -HOLD METFORMIN - RECEIVED CONTRAST 20 ML VIAL IV SCH; -IOHEXOL 350 MG/ML 100 ML (OMNIPAQUE 350) VIAL IV ONE; -NS 100 ML (IVPB) BAG IV ONE
[2021-09-05 11:28] LABS: BASOPHILS # (AUTO) 0.1 10^3/uL (0.0-0.1); BASOPHILS % (AUTO) 1 % (0-10); EOSINOPHILS # (AUTO) 0.2 10^3/uL (0.0-0.3); EOSINOPHILS % (AUTO) 4 % (0-10); HEMATOCRIT 44 % (40-54); LYMPHOCYTES # (AUTO) 0.7 10^3/uL (1.0-4.0); LYMPHOCYTES % (AUTO) 14 % (12-44); MEAN CORPUSCULAR HEMOGLOBIN 32 pg (25-34); MEAN CORPUSCULAR HGB CONC 34 g/dL (32-36); MEAN CORPUSCULAR VOLUME 94 fL (80-99); MEAN PLATELET VOLUME 9.5 fL (9.0-12.2); MONOCYTES # (AUTO) 0.5 10^3/uL (0.0-1.0); MONOCYTES % (AUTO) 10 % (0-12); NEUTROPHILS # (AUTO) 3.8 10^3/uL (1.8-7.8); NEUTROPHILS % (AUTO) 71 % (42-75); PLATELET COUNT 196 10^3/uL (130-400); WHITE BLOOD COUNT 5.3 10^3/uL (4.3-11.0)
[2021-09-05 11:43] LABS: ALBUMIN 3.7 GM/DL (3.2-4.5); BILIRUBIN,TOTAL 0.6 MG/DL (0.1-1.0); CALCIUM 9.2 MG/DL (8.5-10.1); CREATININE SERUM 0.89 MG/DL (0.60-1.30); POTASSIUM 4.3 MMOL/L (3.6-5.0); TOTAL PROTEIN 6.6 GM/DL (6.4-8.2)
== END 2021-10-21 | disposition home or self-care (01) ==
LOC: ONC 10:57
PROVIDERS: ATTEND Internal Medicine Hematology & Oncology
DX: Z45.2 Encounter for adjustment and management of vascular access device (principal); C20 Malignant neoplasm of rectum; I10 Essential (primary) hypertension; Z92.21 Personal history of antineoplastic chemotherapy; Z92.3 Personal history of irradiation; Z90.49 Acquired absence of other specified parts of digestive tract
CPT/HCPCS: 80053; 82378; 85025; G0463; 36591

== ENCOUNTER 2021-10-10 07:55 | Outpatient (CLI) | payer OTHER ==
[~2021-10-10] VITALS: Ht 95.6 cm; Wt 154.6 kg
== END 2021-10-11 07:57 | disposition home or self-care (01) ==
LOC: PREOP 07:55
PROVIDERS: ATTEND Surgery
DX: Z01.818 Encounter for other preprocedural examination (principal)

== ENCOUNTER 2021-10-18 07:26 | Day surgery (SDC) | payer OTHER ==
[~2021-10-18] VITALS: Ht 195.6 cm; Wt 154.6 kg
[2021-10-18 07:40] VITALS: BP 107/71
[2021-10-18] MEDS ORDERED: LACTATED RINGERS 1,000 ML IV ONE (07:43)
[2021-10-18] MEDS ORDERED: LACTATED RINGERS 1,000 ML IV STA (07:48)
[2021-10-18] MEDS ORDERED: MIDAZOLAM 2 MG/2 ML (VERSED) VIAL ONE (08:59)
[2021-10-18] MEDS ORDERED: PROPOFOL INJECTION 50 ML IV ONE (08:59)
[2021-10-18] MEDS ORDERED: KETAMINE SYRINGE 50 MG/5 ML SYRINGE ONE (08:59)
[2021-10-18 09:30] VITALS: BP 109/61
[2021-10-18 09:35] VITALS: BP 106/60
--- NOTE | 2021-10-18 09:35 | Progress Note-Post Operative ---
Post-Operative Progess Note Surgeon (s)/Stopperer Assembler (s) Surgeon SUNDAR GORDON DO Stopperer Assembler: na Pre-Operative Diagnosis hx colon cancer Post-Operative Diagnosis diverticulosis, colon polyp x 2 Procedure & Operative Findings Date of Procedure 10/18/21 Procedure Performed/Findings colonoscopy c hot bx polypectomy x 2 Anesthesia Type per hothouse worker Estimated Blood Loss Estimated blood loss (mL): none Specimens/Packing Specimens Removed rectal anastamosis polyp x 2 SUNDAR GORDON DO Oct 18, 2021 09:35
--- NOTE | 2021-10-18 09:37 | Discharge Inst-Simple/Standard ---
Discharge Inst-Standard Patient Instructions/Follow Up Plan of Care/Instructions/FU: 2 weeks Vanessa Activity as Tolerated: Yes Discharge Diet: Regular Diet (high fiber) SUNDAR GORDON DO Oct 18, 2021 09:37
[2021-10-18 09:40] VITALS: BP 104/60
[2021-10-18 10:20] VITALS: BP 120/80
--- NOTE | 2021-10-18 13:33 | Anesthesia-General Post-Op ---
MAC Patient Condition Mental Status/LOC: Same as Preop Cardiovascular: Satisfactory Nausea/Vomiting: Absent Respiratory: Satisfactory Pain: Controlled Complications: Absent Post Op Complications Complications None Follow Up Care/Instructions Patient Instructions None needed. Anesthesiology Discharge Order Discharge Order Patient is doing well, no complaints, stable vital signs, no apparent adverse anesthesia problems. No complications reported per nursing. MARIAM MONCADA CRNA Oct 18, 2021 13:33
--- NOTE | 2021-10-18 15:07 | OPERATIVE REPORT ---
DATE OF SERVICE: 10/18/2021 PREOPERATIVE DIAGNOSIS: History of colon cancer. POSTOPERATIVE DIAGNOSES: Diverticulosis, two small polyps at the rectal anastomosis. PROCEDURE: Colonoscopy with hot biopsy polypectomy x2. SURGEON: Sundar Mendez DO ANESTHESIA: Per INSPECTOR BICYCLE. ESTIMATED BLOOD LOSS: None. COMPLICATIONS: None. INDICATIONS: The patient is a 55-year-old male with history of colon cancer, needing colonoscopy. He understands risks and benefits of procedure and wishes to proceed. Consent was signed in the chart. DESCRIPTION OF PROCEDURE: The patient was taken to the endoscopy suite, placed in left lateral recumbent position. Timeout was performed. Digital rectal exam was performed. No palpable polyps, masses or ulcerations. Scope was inserted in the rectum, advanced all the way to cecum with minimal difficulty. Prep was adequate. Scope was then slowly retracted back. No polyps, masses or ulcerations within the cecum, ascending, transverse, descending and sigmoid colon. Minimal amount of diverticulosis present. At the anastomosis, two small polyps were present. Hot biopsy polypectomy was performed on these. Scope was continuously retracted back. Aleena ink tattoo was visualized right at the anastomosis. Scope was retroflexed in the rectum, noting no other pathology. Scope was returned to its normal position, slowly withdrawn until completely removed. The patient tolerated procedure well without any complications, taken to recovery room in stable condition. RECOMMENDATIONS: The patient will repeat colonoscopy in 2 years. The patient will follow up in office in two weeks to discuss pathology results. Any issues before that be seen at that time. Job ID: [id number] DocumentID: [id number] Dictated Date: 10/18/2021 09:40:32 [place] Date: 10/18/2021 15:07:01 Dictated By: SUNDAR MENDEZ DO
== END 2021-10-18 10:20 | disposition home or self-care (01) ==
LOC: ENDO 07:26
PROVIDERS: ATTEND Surgery
DX: Z12.11 Encounter for screening for malignant neoplasm of colon (principal); K91.89 Other postprocedural complications and disorders of digestive system; K62.1 Rectal polyp; K57.30 Diverticulosis of large intestine without perforation or abscess without bleeding; I10 Essential (primary) hypertension; Z79.899 Other long term (current) drug therapy; Z85.038 Personal history of other malignant neoplasm of large intestine
CPT/HCPCS: 88305

== ENCOUNTER 2022-05-22 11:37 | Emergency (ER) | payer OTHER ==
--- NOTE | 2022-05-22 12:25 | ED GU-Male ---
General Chief Complaint: - Reproductive Stated Complaint: UNABLE TO URINATE Nursing Triage Note: PT AMB TO [facility] 3 WITH C/O TROUBLE URINATING X3 WEEKS, BUT NOW PAINFUL WHEN URINATING. PT HAS SEEN PCP X2 AND WAS GIVEN ABX BY PCP AND DR MANRIQUE'S OFFICE. PT FEELS LIKE HE IS UNABLE TO EMPTY BLADDER FULLY Source: patient Exam Limitations: no limitations History of Present Illness Date Seen by Provider: May 22, 2022 Time Seen by Provider: 12:23 Initial Comments Patient is a 56-year-old male with a history of colon rectal cancer who presents ED with difficulty urinating over the past 3 weeks. Patient states when he does urinate especially during the day he does not feel like he is completely voiding with some pain and discomfort. He may urinate in 3 seconds or may take 4 to 5 minutes. Appears to be worse at night. He was placed on Macrobid last Sunday by Dr. Ardon as he works at [employer] and was seen in the clinic there. Was prescribed increased Macrobid by Dr. Ybarra's office last week and has been on the medication for at least half of the 20 days. Not able to follow-up with Dr. Ybarra until next week. Patient reports scar tissue of his bladder. Denies of any dark urine, fever, chills, nausea, vomiting. Has had some mild discomfort in his left abdomen but has been using heat for improvement. Patient bladder scan showed 19ml Allergies and Home Medications Allergies Coded Allergies: No Known Drug Allergies (Unverified , 08/25/20) Patient Home Medication List Home Medication List Reviewed: Yes Cephalexin (Cephalexin) 500 Mg Tablet, 500 MG PO TID Prescribed by: KRYSTYNA ALICIA on 05/22/22 1316 Lisinopril/Hydrochlorothiazide (Lisinopril-Hctz 20-12.5 mg Tab) 1 Each Tablet, 1 EACH PO DAILY, (Reported) Entered as Reported by: PRESLEY ROGERS on 08/25/20 1338 Meloxicam (Meloxicam) 15 Mg Tablet, 15 MG PO DAILY, (Reported) Entered as Reported by: PRESLEY ROGERS on 08/25/20 1338 Review of Systems Review of Systems Constitutional: No chills, No diaphoresis, No malaise, No weakness EENTM: No hearing loss, No ear pain, No blurred vision, No double vision Respiratory: No cough, No orthopnea, No short of breath Cardiovascular: No chest pain, No edema Gastrointestinal: No abdominal pain, No diarrhea, No nausea, No vomiting Genitourinary: burning, dysuria, frequency, pain Musculoskeletal: No back pain, No joint pain Skin: No change in color, No change in hair/nails All Other Systemes Reviewed Negative Unless Noted: Yes Past Rciphzk-Avgmft-Myhqxf Hx Patient Social History Tobacco Use?: No Substance use?: No Alcohol Use?: Yes Alcohol type: Beer Alcohol Frequency: Once in a while Pt feels they are or have been: No Immunizations Up To Date Tetanus Booster (TDap): Unknown First/Initial COVID19 Vaccinat: JANUARY 2021 Second COVID19 Vaccination [place]: FEBRUARY 2021 Third COVID19 Vaccination Date: AUGUST 2021 COVID19 Vaccine Dean Of Instruction: Tiller Seasonal Allergies Seasonal Allergies: No Past Medical History Surgery/Hospitalization HX: CHEMO, RADIATION, COLORECTAL CANCER IN 2020, PARTIAL COLECTOMY Surgeries: Yes (ORAL, colon resection) Adenoidectomy, Bowel Surgery, Tonsillectomy Respiratory: No Cardiac: Yes Hypertension Neurological: No Sexually Transmitted Disease: No HIV/AIDS: No Genitourinary: No Gastrointestinal: Yes (colon cancer) Musculoskeletal: No Endocrine: No HEENT: Yes (READING GLASSES) Loss of Vision: Denies Hearing Impairment: Denies Cancer: Yes Colon What Type of Treatment Did You: Surgical Intervention Psychosocial: No Integumentary: No Blood Disorders: No Adverse Reaction/Blood Tranf: No (N/A) Family Medical History Cataracts 19 MOTHER Completed stroke 19 FATHER Deafness or hearing loss 19 MOTHER Hypertension 19 FATHER 19 MOTHER No Pertinent Family Hx Physical Exam Vital Signs Vital Signs - First Documented 05/22/22 11:48 Temp 36.2 Pulse 112 Resp 18 B/P (MAP) 138/68 (91) Capillary Refill : Height, Weight, BMI Height: 6'5.00" Weight: 335lbs. oz. 151.226097sw; 40.40 BMI Method:Stated General Appearance: WD/WN, no apparent distress HEENT: PERRL/EOMI, normal ENT inspection, TMs normal, pharynx normal Neck: non-tender, full range of motion, supple, normal inspection Cardiovascular: regular rate, rhythm, no edema, no gallop, no JVD Respiratory: chest non-tender, lungs clear, normal breath sounds, no respiratory distress, no accessory muscle use Gastrointestinal: normal bowel sounds, non tender, soft, no organomegaly, no pulsatile mass Back: normal inspection, no CVA tenderness, no vertebral tenderness Extremities: normal range of motion, non-tender, normal inspection, no pedal edema Neurologic/Psychiatric: thresher broomcorn II-XII nml as tested, no motor/sensory deficits, alert, normal mood/affect, oriented x 3 Skin: normal color, warm/dry Progress/Results/Core Measures Suspected Sepsis SIRS Temperature: Pulse: 112 Respiratory Rate: 18 Laboratory Tests 05/22/22 12:32: White Blood Count 7.1 Blood Pressure 138 /68 Mean: 91 Laboratory Tests 05/22/22 12:32: Creatinine 0.97, Platelet Count 208, Total Bilirubin 0.8 Results/Orders Lab Results Laboratory Tests Test 05/22/22 12:31 05/22/22 12:32 Range/Units Urine Color YELLOW Urine Clarity CLEAR Urine pH 5.5 5-9 Urine Specific [place] >=1.030 1.016-1.022 Urine Protein TRACE H NEGATIVE Urine Glucose (UA) NEGATIVE NEGATIVE Urine Ketones NEGATIVE NEGATIVE Urine Nitrite NEGATIVE NEGATIVE Urine Bilirubin NEGATIVE NEGATIVE Urine Urobilinogen 0.2 < = 1.0 MG/DL Urine Leukocyte Esterase 1+ H NEGATIVE Urine RBC (Auto) 2+ H NEGATIVE Urine RBC 10-25 H /HPF Urine WBC 10-25 H /HPF Urine Crystals PRESENT H /LPF Urine Amorphous Sediment FEW ANTONY URATES H /LPF Urine Bacteria MODERATE H /HPF Urine Casts NONE /LPF Urine Mucus MODERATE H /LPF Urine Culture Indicated YES White Blood Count 7.1 4.3-11.0 10^3/uL Red Blood Count 4.74 4.30-5.52 10^6/uL Hemoglobin 15.2 13.3-17.7 g/dL Hematocrit 44 40-54 % Mean Corpuscular Volume 92 80-99 fL Mean Corpuscular Hemoglobin 32 25-34 pg Mean Corpuscular Hemoglobin Concent 35 32-36 g/dL Red Cell Distribution Width 13.7 10.0-14.5 % Platelet Count 208 130-400 10^3/uL Mean Platelet Volume 9.3 9.0-12.2 fL Immature Granulocyte % (Auto) 0 % Neutrophils (%) (Auto) 76 H 42-75 % Lymphocytes (%) (Auto) 10 L 12-44 % Monocytes (%) (Auto) 11 0-12 % Eosinophils (%) (Auto) 2 0-10 % Basophils (%) (Auto) 1 0-10 % Neutrophils # (Auto) 5.4 1.8-7.8 10^3/uL Lymphocytes # (Auto) 0.7 L 1.0-4.0 10^3/uL Monocytes # (Auto) 0.8 0.0-1.0 10^3/uL Eosinophils # (Auto) 0.1 0.0-0.3 10^3/uL Basophils # (Auto) 0.0 0.0-0.1 10^3/uL Immature Granulocyte # (Auto) 0.0 0.0-0.1 10^3/uL Sodium Level 139 135-145 MMOL/L Potassium Level 3.9 3.6-5.0 MMOL/L Chloride Level 104 98-107 MMOL/L Carbon Dioxide Level 24 21-32 MMOL/L Anion Gap 11 5-14 MMOL/L Blood Urea Nitrogen 21 H 7-18 MG/DL Creatinine 0.97 0.60-1.30 MG/DL Estimat Glomerular Filtration Rate 92 BUN/Creatinine Ratio 22 Glucose Level 117 H 70-105 MG/DL Calcium Level 9.0 8.5-10.1 MG/DL Corrected Calcium 9.0 8.5-10.1 MG/DL Total Bilirubin 0.8 0.1-1.0 MG/DL Aspartate Amino Transf (AST/SGOT) 19 5-34 U/L Alanine Aminotransferase (ALT/SGPT) 32 0-55 U/L Alkaline Phosphatase 78 40-136 U/L Total Protein 6.9 6.4-8.2 GM/DL Albumin 4.0 3.2-4.5 GM/DL Lipase 17 8-78 U/L My Orders Orders - MARINA KOLB Urinalysis (05/22/22 11:39) Bladder Scan (05/22/22 11:39) Cbc With Automated Diff (05/22/22 12:22) Comprehensive Metabolic Panel (05/22/22 12:22) Lipase (05/22/22 12:22) Ct Abd/Pelvis Wo(Kidney Stone) (05/22/22 12:25) Urine Culture (05/22/22 12:31) Vital Signs/I&O 05/22/22 11:48 Temp 36.2 Pulse 112 Resp 18 B/P (MAP) 138/68 (91) Capillary Refill : Blood Pressure Mean: 91 Departure Communication (PCP) Patient with urinary symptoms. Has been on a 10-day trial of Macrobid without much improvement. He is afebrile with stable vital signs. Lab work was reassuring. Had some left-sided abdominal discomfort without any pain on palpation. Bladder scan 19ml. Not concern for urinary outlet obstruction. Due to patient's presentation and urinary symptoms and failed outpatient CT abdomen pelvis was ordered to rule out potential obstruction such as a calculus. CT scan shows slight asymmetric left-sided hydroureteronephrosis. No renal or ureteral calculi noted. Could be based on a previous passed stone versus a soft tissue filling defect within the ureter. Patient scheduled to follow-up with Dr. Ybarra next week. Recommend follow-up for further evaluation. Will discharge with Keflex for 10 days. Culture pending. No acute distress. Recommend oral hydration. If any worsening symptoms such as fever, vomiting, worsening pain to return back to ED. Impression Primary Impression: UTI (urinary tract infection) Disposition: 01 HOME, SELF-CARE Condition: Stable Departure-Patient Inst. Decision time for Depature: 13:15 Referrals: FELICIANO LAMBERT DO (PCP/Family) Primary Care Physician DIAMOND MANRIQUE MD Patient Instructions: Urinary Tract Infection, Adult (DC) Scripts Cephalexin (Cephalexin) 500 Mg Tablet 500 MG PO TID for 10 Days, #30 TAB Prov: MARINA KOLB 05/22/22 MARINA KOLB May 22, 2022 12:25
[2022-05-22 12:40] LABS: BILIRUBIN,URINE NEGATIVE (NEGATIVE); CLARITY,URINE CLEAR; COLOR,URINE YELLOW; GLUCOSE, URINE (UA) NEGATIVE (NEGATIVE); KETONES,URINE NEGATIVE (NEGATIVE); LEUKOCYTE ESTERASE ,URINE 1+ (NEGATIVE); NITRITE,URINE NEGATIVE (NEGATIVE); PH,URINE 5.5 (5-9); PROTEIN,URINE TRACE (NEGATIVE)
[2022-05-22 12:41] LABS: BASOPHILS % (AUTO) 1 % (0-10); EOSINOPHILS # (AUTO) 0.1 10^3/uL (0.0-0.3); EOSINOPHILS % (AUTO) 2 % (0-10); HEMATOCRIT 44 % (40-54); HEMOGLOBIN 15.2 g/dL (13.3-17.7); LYMPHOCYTES # (AUTO) 0.7 10^3/uL (1.0-4.0); LYMPHOCYTES % (AUTO) 10 % (12-44); MEAN CORPUSCULAR HEMOGLOBIN 32 pg (25-34); MEAN CORPUSCULAR HGB CONC 35 g/dL (32-36); MEAN CORPUSCULAR VOLUME 92 fL (80-99); MEAN PLATELET VOLUME 9.3 fL (9.0-12.2); MONOCYTES # (AUTO) 0.8 10^3/uL (0.0-1.0); MONOCYTES % (AUTO) 11 % (0-12); NEUTROPHILS # (AUTO) 5.4 10^3/uL (1.8-7.8); NEUTROPHILS % (AUTO) 76 % (42-75); PLATELET COUNT 208 10^3/uL (130-400); WHITE BLOOD COUNT 7.1 10^3/uL (4.3-11.0)
[2022-05-22 12:56] LABS: POTASSIUM 3.9 MMOL/L (3.6-5.0)
[2022-05-22 12:57] LABS: AMORPHOUS SEDIMENT,UR FEW AMOR URATES /LPF; BACTERIA,URINE MODERATE /HPF
[2022-05-22 12:58] LABS: TOTAL PROTEIN 6.9 GM/DL (6.4-8.2)
[2022-05-22 13:00] LABS: BILIRUBIN,TOTAL 0.8 MG/DL (0.1-1.0)
[2022-05-22 13:02] LABS: CREATININE SERUM 0.97 MG/DL (0.60-1.30)
--- NOTE | 2022-05-22 13:04 | Diagnostic Imaging Report ---
PROCEDURE: CT urinary tract, rule out kidney stone. TECHNIQUE: Multiple contiguous axial images were obtained through the abdomen and pelvis without the use of intravenous contrast. Auto Exposure Controls were utilized during the CT exam to meet ALARA standards for radiation dose reduction. INDICATION: History of colorectal cancer. Now with difficulty urinating. Dysuria. COMPARISON: 06/28/2021. FINDINGS: Included portions of the lung bases are clear. CT ABDOMEN: Normal appendix is identified. Small bowel loops are nondistended. There is colonic diverticulosis, but no CT evidence of acute diverticulitis. There is slight asymmetric dilated appearance to the left ureter, particularly distally. Left renal pelvis is also slightly asymmetrically prominent. Renal calyces appear decompressed, bilaterally. Additionally, no renal or ureteral calculi are seen on either side. Kidneys have an otherwise unremarkable noncontrast CT appearance. Multiple hypodense hepatic cysts are noted. Otherwise, the liver, spleen, pancreas, and adrenal glands have an unremarkable noncontrast CT appearance. There is no loculated fluid collection, free fluid, nor free air. No abnormal mesenteric or retroperitoneal adenopathy is seen. Fat-containing midline supraumbilical ventral hernias are identified. [place] measure approximately 3.3 and 2.8 cm in diameter. Osseous structures show no acute abnormalities. CT PELVIS: Urinary bladder is unopacified. No calculi are seen within the urinary bladder. There is no loculated fluid collection, free fluid, or free air within the pelvis. No abnormal lymph nodes are seen. Osseous structures show no acute abnormalities. Note is made of advanced degenerative changes of the right hip. IMPRESSION: 1. Slight asymmetric left-sided hydroureteronephrosis as detailed above. Despite this, no renal or ureteral calculi are seen on either side. Findings could be on the basis of recent passage of a calculus. Soft tissue filling defect within the ureter cannot be excluded based on this noncontrast exam. Further evaluation with postcontrast CT of the abdomen and pelvis with delayed imaging may be of benefit. Additionally, renal Lasix scan may be of value to assess for true underlying obstruction. 2. Colonic diverticulosis, but no CT evidence of acute diverticulitis. 3. Fat-containing supraumbilical ventral hernias. Dictated by: Dictated on workstation # [id number]
[2022-05-22] MEDS ORDERED: CEPH500T PO (13:16)
[2022-05-22 13:27] VITALS: BP 132/64
== END 2022-05-22 13:30 | disposition home or self-care (01) ==
LOC: EDUNIT# 11:37 → ER 11:38
DX: N39.0 Urinary tract infection, site not specified (principal); N13.30 Unspecified hydronephrosis
CPT/HCPCS: 36415; 74176; 80053; 81000; 83690; 85025; 87088

== ENCOUNTER 2023-07-09 14:23 | Outpatient (CLI) | payer OTHER ==
[~2023-07-09] VITALS: Ht 195.6 cm; Wt 149.7 kg
[~2023-07-09 14:23] MED LIST changes: +CEPH500T PO
[2023-07-09] MEDS ORDERED: SOLI10TA7 PO (15:42)
[2023-07-09] MEDS ORDERED: TMSL.4C PO (15:42)
== END 2023-07-10 08:05 | disposition home or self-care (01) ==
LOC: PREOP 14:23
PROVIDERS: ATTEND Surgery
DX: Z01.818 Encounter for other preprocedural examination (principal)

== ENCOUNTER 2023-07-19 06:56 | Day surgery (SDC) | payer OTHER ==
[2023-07-19] VITALS (7 sets, daily range): BP systolic 114–142; BP diastolic 63–87
[~2023-07-19] VITALS: Ht 195 cm; Wt 149.7 kg
[~2023-07-19 06:56] MED LIST changes: +SOLI10TA7 PO; +TMSL.4C PO
[2023-07-19] MEDS ORDERED: LACTATED RINGERS 1,000 ML 1,000 ML IV PRN (07:00)
[2023-07-19] MEDS ORDERED: ceFAZolin INJECTION 2,000 MG in NS (IVPB) 50 ML 50 ML IV ONE (07:00)
[2023-07-19] MEDS ORDERED: LIDOCAINE/EPI 1%-1:200,000 (XYLOCAINE) 30 ML VIAL ONE (07:02)
--- NOTE | 2023-07-19 07:51 | Progress Note-Pre Operative ---
Pre-Operative Progress Note Date H&P Reviewed: Jul 19, 2023 Time H&P Reviewed: 07:50 History & Physical: H&P Reviewed, Patient Examed, No changes noted Pre-Operative Diagnosis: hx colon cancer SUNDAR GORDON DO Jul 19, 2023 07:50
[2023-07-19] MEDS ORDERED: MIDAZOLAM INJ 2 MG/2 ML VIAL ONE (07:54)
[2023-07-19] MEDS ORDERED: LIDOCAINE/EPI 1%-1:200,000 (XYLOCAINE) 30 ML VIAL INJ ONE (08:15)
--- NOTE | 2023-07-19 08:28 | Progress Note-Post Operative ---
Post-Operative Progess Note Surgeon (s)/Account Development Specialist (s) Surgeon SUNDAR GORDON DO Account Development Specialist: na Pre-Operative Diagnosis hx colon cancer Post-Operative Diagnosis fractured catheter Procedure & Operative Findings Date of Procedure 07/19/23 Procedure Performed/Findings port removal Anesthesia Type mac c local Estimated Blood Loss Estimated blood loss (mL): minimal Specimens/Packing Specimens Removed na SUNDAR GORDON DO Jul 19, 2023 08:28
--- NOTE | 2023-07-19 09:08 | Diagnostic Imaging Report ---
CLINICAL INDICATION: Patient post port removal. Catheter fractures after removal. Check to see placement of fractured catheter. EXAM: Portable chest x-ray, upright view. COMPARISON: Chest x-ray dated 10/28/2020. FINDINGS: There is interval removal of the previously seen right sided IJ central line. There is a segment of tubing measuring at least 15 cm which overlies the right lung base. This is not seen on the prior study. Lungs/pleura: Lungs are clear. There is no pneumothorax. There is no pleural effusion. Mediastinum: Unremarkable. Pulmonary vasculature: Unremarkable. Heart: Unremarkable. Bones/extrathoracic soft tissue: Unremarkable. IMPRESSION: 1: The previously seen right IJ central line has been removed. There is a segment of tubing measuring at least 15 cm which overlies the right lung base. If this represents residual right IJ tubing, then it is possible that it may be in the pulmonary artery system. A CT scan of the chest without contrast is suggested for further evaluation. 2: Otherwise, there is no radiographic evidence of an acute cardiopulmonary process. Dictated by: Dictated on workstation # [id number]
--- NOTE | 2023-07-19 09:52 | Diagnostic Imaging Report ---
PROCEDURE: CT chest without contrast. TECHNIQUE: Multiple contiguous axial images were obtained through the chest without the use of intravenous contrast. Auto Exposure Controls were utilized during the CT exam to meet ALARA standards for radiation dose reduction. INDICATION: Fractured port with malpositioned catheter fragment. The study is performed for further evaluation. Comparison is made with the chest radiograph from earlier the same day. There is a long catheter fragment located with the proximal portion in the right main pulmonary artery and extending distally into right lower lobe pulmonary artery extending to the subpleural surface laterally. Catheter fragment is approximately 15 cm long. No pericardial or pleural fluid is identified. No pulmonary infiltrates, nodules or masses are seen. There is no pneumothorax identified. Upper abdomen demonstrates low-attenuation lesions within the liver, suggestive of cysts. IMPRESSION: Catheter fragment extending from the right main pulmonary artery distally into the right lower lobe pulmonary artery, as described. This is approximately 15 cm in length. Interventional consultation would be recommended. Results were discussed with Dr. Marcus Mendez prior to this dictation. Dictated by: Dictated on workstation # [id number]
--- NOTE | 2023-07-19 09:59 | Anesthesia-General Post-Op ---
MAC Patient Condition Mental Status/LOC: Same as Preop Cardiovascular: Satisfactory Nausea/Vomiting: Absent Respiratory: Satisfactory Pain: Controlled Complications: Absent Post Op Complications Complications None Follow Up Care/Instructions Patient Instructions None needed. Anesthesiology Discharge Order Discharge Order Patient is doing well, no complaints, stable vital signs, no apparent adverse anesthesia problems. No complications reported per nursing. SHELLY PARIS CRNA Jul 19, 2023 09:59
--- NOTE | 2023-07-19 10:38 | Discharge Inst-Simple/Standard ---
Discharge Inst-Standard Patient Instructions/Follow Up Plan of Care/Instructions/FU: Reta today for appointment. Vanessa 2 weeks. Activity as Tolerated: Yes Discharge Diet: Regular Diet Other Inst to Patient Follow up Appt: Make appointment for 2 week Vanessa. Reta today. Instructions: No strenuous activity. May shower in 24 hours, no tub bath or soaking. Use incentive spirometer at home as directed. No Smoking Skin/Wound Care: You have special glue over your incision that will fall off on it's own. Symptoms to Report: Appetite Changes, Extremity Discoloration, Numbness/Tingling, Swelling Increased, Bleeding Excessive, Eyesight Changes, Pain Increased, Urine Color Change, Constipation(Persistent), Fever over 101 degree F, Pain/Pressure in chest, Urinating Difficulty, Cough Up/Vomit Blood, Heart Beat Irreg/Pounding, Pain/Pressure in jaw, Vaginal Bleeding Increase, Cramps in feet or legs, Lightheadedness, Pain/Pressure in shoulder, Diarrhea(Persistent), Memory Changes Suddenly, Questions/Concerns, Weight gain consecutive days, Dizziness/Fainting, Nausea/Vomiting, Shortness of Breath, Weight gain over 2 pounds If questions or concerns contact your physician Or seek help at emergency department. SUNDAR GORDON DO Jul 19, 2023 10:38
== END 2023-07-19 10:10 | disposition home or self-care (01) ==
LOC: SDC 06:56
PROVIDERS: ATTEND Surgery
DX: T82.594A Other mechanical complication of infusion catheter, initial encounter (principal); Z85.038 Personal history of other malignant neoplasm of large intestine; Z79.899 Other long term (current) drug therapy
CPT/HCPCS: 71045; 71250; 87081